=== PATIENT | female | born 1945 | race Caucasian/White ===

== ENCOUNTER → 2016-07-11 | Outpatient (CLI) | payer BC ==
[~2016-07-11] MED LIST: ASCO1CAP3 PO; ASPI-461 PO; ATV1 PO; DILT-119 PO; DVN80125 PO; FURO40TA3 PO; HYDR-4852 PO; IRON PO; LYR/50 PO; MEDR2.5T PO; MULT-884 PO; NITROGLYCERIN SL; NXM/40 PO; POTA10CA28 PO; PRM625 PO; ROSU20TA PO; RXC5 PO; SITA1TAB21 PO
[2016-07-11 14:37] LABS: HEMATOCRIT 36.6 % (37-47); MEAN CELL VOLUME 96.8 fL (80-100); MEAN CORPUSCULAR HEMOGLOBIN 32.3 pg (25-34); MEAN CORPUSCULAR HGB CONC 33.3 g/dl (32-36); MEAN PLATELET VOLUME 9.8 fL (7.4-10.4); PLATELET COUNT 235 K/uL (130-400); RED BLOOD COUNT 3.78 M/uL (4.2-5.4); WHITE BLOOD COUNT 7.69 K/uL (4.8-10.8)
[2016-07-11 14:48] LABS: BLOOD UREA NITROGEN 26 mg/dl (7-18); BUN/CREATININE RATIO 15.1 (10-20); CALCIUM 9.6 mg/dl (8.5-10.1); CARBON DIOXIDE 28 mmol/L (21-32); CHLORIDE 106 mmol/L (98-107); GLUCOSE 179 mg/dl (70-99); POTASSIUM 4.4 mmol/L (3.5-5.1); SODIUM 143 mmol/L (136-145)
[2016-07-11 14:53] LABS: FERRITIN 40.8 ng/ml (8.0-388.0); PHOSPHORUS 3.8 mg/dl (2.5-4.9); TOTAL IRON BINDING CAPACITY 413 mcg/dl (250-450)
== END | disposition home or self-care (01) ==
LOC: C.LAB 13:21
PROVIDERS: ATTEND Internal Medicine Nephrology
DX: D64.9 Anemia, unspecified (principal); E55.9 Vitamin D deficiency, unspecified

== ENCOUNTER 2017-07-18 13:17 | Inpatient (IN) | payer BC, OTHER ==
[~2017-07-18] VITALS: Ht 157.5 cm; Wt 75.9 kg
[2017-07-18] MEDS ORDERED: MoRPHine SULFATE 4 MG/ML 1 ML CARP\\VIAL IV STA (14:56)
[2017-07-18] MEDS ORDERED: CHOL2000 PO (15:20)
[2017-07-18] MEDS ORDERED: HYDR-5688 PO (15:20)
[2017-07-18] MEDS ORDERED: FLNIN/ NAE (15:20)
[2017-07-18] MEDS ORDERED: SERT1TAB88 PO (15:20)
[2017-07-18] MEDS ORDERED: POTA20TA13 PO (15:20)
[2017-07-18] MEDS ORDERED: FERR1TAB62 PO (15:20)
[2017-07-18] MEDS ORDERED: BUME2TAB3 PO (15:20)
[2017-07-18] MEDS ORDERED: MULT-610 PO (15:20)
[2017-07-18] MEDS ORDERED: DILT360C22 PO (15:20)
[2017-07-18] MEDS ORDERED: ZRX25 PO (15:20)
[2017-07-18] MEDS ORDERED: ESOM1CAP34 PO (15:20)
[2017-07-18] MEDS ORDERED: ROSU20TA33 PO (15:20)
[2017-07-18] MEDS ORDERED: GLCSR5 PO (15:20)
[2017-07-18] MEDS ORDERED: ASPI81TA28 PO (15:22)
[2017-07-18] MEDS ORDERED: NTRSL3 UT (15:24)
[2017-07-18] MEDS ORDERED: MoRPHine SULFATE 4 MG/ML 1 ML CARP\\VIAL IM STA (15:44)
--- NOTE | 2017-07-18 15:50 | DIAGNOSTIC IMAGING REPORT ---
LUMBAR SPINE 2 OR 3 VIEWS CLINICAL HISTORY: lower back pain COMPARISON STUDY: 01/21/2015 FINDINGS: Extensive postsurgical changes are again evident. There are postsurgical changes of discectomies and interbody fusions at the L4-5 and L5-S1 levels. There is a grade 1 spinal listhesis of L4 and L5. There is thoracolumbar spinal fusion extending from the T11 through the S1 level. There are bilateral sacroiliac bolts. There are multilevel degenerative changes. There is no pathologic bowel dilatation. There are surgical clips within the right upper quadrant. IMPRESSION: Extensive postsurgical changes. No acute fractures are visualized. Electronically signed by: Rajesh Meng M.D. 07/18/2017 3:48 PM Dictated Date/Time: 07/18/2017 3:47 PM
--- NOTE | 2017-07-18 16:42 | EMERGENCY ROOM VISIT NOTE ---
History First contact with patient: 14:16 Chief Complaint: BACK PAIN Stated Complaint: BACK PAIN History of Present Illness The patient is a 72 year old female who presents to the Emergency Room with complaints of lower back pain. The patient stated that she bent to clean up a spill at about 1 AM this morning and heard a snap/click in the lower back and developed severe pain in the back. The pain is 10/10 .She states that the pain sometimes radiates to her upper back but denies any radiation to lower extremities. She denies any bowel or bladder incontinence, motor weakness, numbness or tingling. Denies any chest pain, shortness of breath, nausea, vomiting. Review of Systems See HPI for pertinent positives & negatives. A total of 10 systems reviewed and were otherwise negative. Past Medical/Surgical History Medical Problems: (1) Bradycardia (2) Chest pain Surgical Problems: (1) History of bilateral knee replacement Social History Smoking Status: Never Smoker Current/Historical Medications Scheduled Ascorbic Acid (Vitamin C), 500 MG PO QAM Aspirin (Aspirin Ec), 81 MG PO QAM Bumetanide (Bumex), 2 MG PO BID Cholecalciferol (Vitamin D3), 2,000 INTER.UNIT PO DAILY Doxycycline Hyclate (Doxycycline Hyclate), 100 MG PO BID Esomeprazole Magnesium (Esomeprazole Magnesium), 40 MG PO QAM Ferrous Sulfate (Ferrous Sulfate), 325 MG PO DAILY Glipizide (Glipizide Xl), 5 MG PO DAILY Multiple Vitamins W/ Minerals (Centrum Adults), 1 TAB PO DAILY Potassium Chloride Microencaps (Potassium Chloride Er), 40 MEQ PO BID Pregabalin (Lyrica), 50 MG PO BID Rosuvastatin Calcium (Rosuvastatin Calcium), 20 MG PO QPM Sertraline HCl (Sertraline HCl), 25 MG PO DAILY Scheduled PRN Fluticasone Propionate (Fluticasone Propionate), 2 SPRAYS LAURIE DAILY PRN for Allergy Symptoms Hydrocodone/Acetaminophen 5MG/325MG ([place] 5MG/325MG), 1 TABLET PO TID PRN for Pain Metolazone (Metolazone), 2.5 MG PO 3XWK PRN for Fluid Retention Nitroglycerin (Nitrostat), 0.3 MG UT UD PRN for Chest Pain Physical Exam Vital Signs Date Time Temp Pulse Resp B/P (MAP) Pulse Ox O2 Delivery O2 Flow Rate FiO2 07/18/17 18:23 65 18 124/94 93 Nasal Cannula 4.0 07/18/17 18:17 37 18 115/44 89 Nasal Cannula 3.0 07/18/17 17:50 72 20 147/65 94 Nasal Cannula 2.0 07/18/17 17:34 37 07/18/17 17:23 88 Room Air 07/18/17 17:23 93 Nasal Cannula 07/18/17 17:10 68 16 140/63 88 07/18/17 16:13 70 20 169/59 93 Room Air 07/18/17 13:38 36.6 76 22 146/79 93 Room Air Physical Exam GENERAL: Patient is in no acute distress. HEENT: No acute trauma, normocephalic atraumatic, mucous membranes moist, no nasal congestion, no scleral icterus. NECK: No stridor, no adenopathy, no meningismus, trachea is midline. LUNGS: Clear to auscultation bilaterally, no wheeze, no rhonchi, breath sounds equal. HEART: Without murmurs gallops or rubs, regular rate and rhythm. ABDOMEN: Soft, nontender, bowel sounds positive, no hernias, no peritonitis. EXTREMITIES: No cyanosis or edema, Lumbar area tenderness in the spine and paraspinal areas especially in the right side. NEUROLOGIC: Oriented x 3, no acute motor or sensory deficits, no focal weakness. SKIN: No rash, no jaundice, no diaphoresis. Medical Decision & Procedures ER Provider Diagnostic Interpretation: CLINICAL HISTORY: lower back pain COMPARISON STUDY: 01/21/2015 FINDINGS: Extensive postsurgical changes are again evident. There are postsurgical changes of discectomies and interbody fusions at the L4-5 and L5-S1 levels. There is a grade 1 spinal listhesis of L4 and L5. There is thoracolumbar spinal fusion extending from the T11 through the S1 level. There are bilateral sacroiliac bolts. There are multilevel degenerative changes. There is no pathologic bowel dilatation. There are surgical clips within the right upper quadrant. IMPRESSION: Extensive postsurgical changes. No acute fractures are visualized. [~ rep ct add3]] SINGLE VIEW CHEST CLINICAL HISTORY: Atypical chest pain. FINDINGS: An AP, portable, upright chest radiograph is compared to study dated 12/17/2014 and correlated with chest CT dated 02/13/2017. The examination is degraded by portable technique and patient rotation. The heart is enlarged and there is atherosclerotic calcification of the thoracic aorta. The pulmonary vasculature is noncongested. Chronic interstitial thickening is similar to previous. No airspace consolidation or large pleural effusion is identified. There is left basilar atelectasis. No pneumothorax is seen. The skeletal structures are osteopenic. Degenerative change and scoliosis are noted in the thoracic spine. Fusion hardware is partially imaged in the upper lumbar region. Cholecystectomy clips are noted. IMPRESSION: Cardiomegaly with no acute cardiopulmonary abnormality. Electronically signed by: Vance Aburto M.D. 07/18/2017 5:58 PM Dictated Date/Time: 07/18/2017 5:[address] ANGIOGRAM OF THE CHEST CLINICAL HISTORY: Atypical chest pain. Hypoxia. COMPARISON STUDY: Chest x-ray dated 07/18/2017. Chest CT dated 02/13/2017. TECHNIQUE: Following the IV administration of 86 cc of Optiray 320, CT angiogram of the chest was performed from the upper abdomen to the thoracic inlet utilizing the pulmonary embolus protocol. Images are reviewed in the axial, sagittal, and coronal planes. 3-D MIPS images are created and assessed. IV contrast was administered without complication. A dose lowering technique was utilized adhering to the principles of ALARA. The examination is degraded by motion artifact. CT DOSE: 349.06 mGy.cm FINDINGS: Thyroid: Imaged portions of the thyroid gland are normal in size and attenuation. Thoracic aorta: There is atherosclerotic calcification of the thoracic aorta, which is normal in caliber and demonstrates standard 3-vessel arch anatomy. The thoracic aorta is not well opacified. Pulmonary vasculature: The pulmonary trunk is mildly dilated measuring 3.1 cm in diameter. This suggests pulmonary artery hypertension. There are no filling defects identified in main, lobar, or segmental pulmonary branches to suggest pulmonary embolus. Heart: The heart is enlarged and without pericardial effusion. The coronary arteries are calcified. Lungs and pleural spaces: Evaluation of the lung parenchyma is significantly degraded by respiratory motion artifact. Dependent airspace opacities are present at both lung bases. No pleural effusion is seen. Mediastinum: Prominent mediastinal lymph nodes are nonspecific. A prevascular node on image #171 measure 9 mm short axis. A precarinal node on image #155 measures 10 mm in short axis. Antionette: Clear. Axillae: There is no axillary lymphadenopathy. Upper abdomen: Cholecystectomy clips are noted. Central intrahepatic biliary ductal dilatation is likely related to previous cholecystectomy. There is a moderate hiatal hernia. Skeletal structures: The skeletal structures are osteopenic. Fusion hardware is noted at the thoracolumbar junction. Degenerative change is seen throughout the thoracic spine. No lytic or blastic bony lesions are seen. IMPRESSION: 1. Motion degraded examination. 2. There is no evidence of pulmonary embolus in the main, lobar, or segmental pulmonary arteries. 3. Dependent airspace opacities are present at both lung bases and likely represent atelectasis. Correlate clinically for evidence of superimposed pneumonia/aspiration pneumonitis. 4. No pleural effusion is identified. 5. Cardiomegaly. 6. Moderate hiatal hernia. 7. Additional findings as above. Laboratory Results Test 07/18/17 17:24 07/18/17 17:50 Immature Granulocyte % (Auto) 0.3 % White Blood Count 7.11 K/uL (4.8-10.8) Red Blood Count 3.95 M/uL (4.2-5.4) Hemoglobin 12.8 g/dL (12.0-16.0) Hematocrit 37.4 % (37-47) Mean Corpuscular Volume 94.7 fL (80-100) Mean Corpuscular Hemoglobin 32.4 pg (25-34) Mean Corpuscular Hemoglobin Concent 34.2 g/dl (32-36) Platelet Count 181 K/uL (130-400) Mean Platelet Volume 9.2 fL (7.4-10.4) Neutrophils (%) (Auto) 46.3 % Lymphocytes (%) (Auto) 40.5 % Monocytes (%) (Auto) 10.5 % Eosinophils (%) (Auto) 2.1 % Basophils (%) (Auto) 0.3 % Neutrophils # (Auto) 3.29 K/uL (1.4-6.5) Lymphocytes # (Auto) 2.88 K/uL (1.2-3.4) Monocytes # (Auto) 0.75 K/uL (0.11-0.59) Eosinophils # (Auto) 0.15 K/uL (0-0.5) Basophils # (Auto) 0.02 K/uL (0-0.2) Immature Granulocyte # (Auto) 0.02 K/uL (0.00-0.02) Prothrombin Time 10.4 SECONDS (9.0-12.0) Prothromb Time International Ratio 1.0 (0.9-1.1) Total Bilirubin 0.3 mg/dl (0.2-1) Direct Bilirubin < 0.1 mg/dl (0-0.2) Aspartate Amino Transf (AST/SGOT) 28 U/L (15-37) Alanine Aminotransferase (ALT/SGPT) 24 U/L (12-78) Alkaline Phosphatase 124 U/L (45-117) Pro-B-Type Natriuretic Peptide 200 pg/ml (0-900) Total Protein 7.2 gm/dl (6.4-8.2) Albumin 3.3 gm/dl (3.4-5.0) Lipase 284 U/L (73-393) Bedside Hemoglobin 10.5 g/dl (12.0-16.0) Bedside Hematocrit 31 % (37-47) Bedside Sodium 144 mEq/L (135-144) Bedside Potassium 3.5 mEq/L (3.3-5.0) Bedside Chloride 107 mEq/L (101-112) Bedside Total CO2 30 mEq/l (24-31) Bedside Blood Urea Nitrogen 20 mg/dl (7-18) Bedside Creatinine 1.3 mg/dl (0.6-1.3) Bedside Glucose (other) 105 mg/dl (70-99) Bedside Ionized Calcium (Maribell) 1.12 mmol/l (1.12-1.32) Medications Administered Medications (Trade) Dose Ordered Sig/Jose Route Start Time Stop Time Status Last Admin Dose Admin Morphine Sulfate (MoRPHine SULFATE INJ) 4 mg NOW STAT IM 07/18/17 15:44 07/18/17 15:45 DC 07/18/17 16:11 4 MG Aspirin (Aspirin Chew) 324 mg NOW STAT PO 07/18/17 17:23 07/18/17 17:24 DC 07/18/17 17:47 324 MG Ondansetron HCl (Zofran Inj) 4 mg STK-MED ONCE .ROUTE 07/18/17 17:32 07/18/17 17:33 DC 07/18/17 17:37 4 MG Nitroglycerin (Nitrostat Tab) 0.4 mg NOW STAT SL 07/18/17 17:42 07/18/17 17:43 DC 07/18/17 17:47 0.4 MG Potassium Chloride (Klor-Con M10) 40 meq NOW STAT PO 07/18/17 18:33 2 18:34 DC 07/18/17 18:39 40 MEQ Magnesium Sulfate (Magnesium Sulfate) 1 gm NOW STAT IV 07/18/17 18:33 2 18:34 DC 07/18/17 18:40 1 GM Medical Decision Prior records reviewed and summarized above. Triage Nursing notes reviewed. Additional history obtained from the patient The patient's history was concerning for Lower back pain. Differential diagnosis: Etiologies such as fracture, dislocation, neurovascular compromise, compartment syndrome, soft tissue injury, as well as others were entertained. Physical examination: Consistent with Low back pain ER treatment provided: Lumbar x-ray was obtained which was negative for any fractures Consultation: A consultation was placed with hospitalist. The case was discussed and diagnostics were reviewed. The patient was evaluated in the ER for further treatment. An 38-year-old female with a past medical history of lumbar spinal fusion presented with complaints of low back pain started this morning when she bent down to clean a spill on the floor and heard a snap. She was evaluated in the ER and her vital signs were stable. Her physical exam was within normal limits and she was given 4 mg of morphine IM . X-ray was obtained which was found to be negative for any fractures. Just prior to discharge she was found to have bradycardia on the monitor and she complained of chest pressure she stated that she had taken a nitroglycerin from her purse which she usually does whenever she gets the chest pain. Her systolic blood pressure also was lower. She was given IV fluids which improved her bradycardia and her blood pressure. CBC, BMP , liver profile, troponin were obtained and found to be unremarkable. Chest x- ray was unremarkable CTA chest was obtained to rule out Pulmonary embolism. The patient had stated that she recently had a cardiac catheterization performed about 2-3 weeks ago and was clean. The report was obtained and was found to have normal LV function with mild regurgitation and mild to moderate pulm hypertension. She was found to have 2 other episodes where she was bradycardic but she was asymptomatic. Was given another litre of IVF and consultation was placed with the hospitalist service for admission. Impression Primary Impression: Back pain Additional Impressions: Bradycardia Precordial chest pain Departure Information Prescriptions Doxycycline Hyclate (Doxycycline Hyclate) 100 Mg Cap 100 MG PO BID for 3 Days, #6 CAP 0 Refills Prov: Edgar Deng MD 07/22/17 Hydrocodone/Acetaminophen 5MG/325MG ([place] 5MG/325MG) Tab 1 TABLET PO TID Y for Pain, #15 TAB Prov: Edgar Deng MD 07/22/17 Referrals CORTNEY TYSON (PCP) Patient Instructions [facility] Resident Tracking Resident Involvement: Resident Care Provided Care Provided: Adult ED Problem Qualifiers Primary Impression: Back pain Back pain location: back pain in unspecified location Chronicity: unspecified Back pain laterality: unspecified Qualified Codes: M54.9 - Dorsalgia, unspecified
[2017-07-18] MEDS ORDERED: OXYC1TAB3 PO (17:05)
[2017-07-18] MEDS ORDERED: ASPIRIN 81 MG CHEW PO STA (17:23)
[2017-07-18] MEDS ORDERED: ONDANSETRON INJ 2 MG/ML 2 ML VIAL ONE (17:32)
[2017-07-18] MEDS ORDERED: ONDANSETRON INJ 2 MG/ML 2 ML VIAL IV STA (17:32)
[2017-07-18 17:37] LABS: BASO % 0.3 %; BASO ABS # 0.02 K/uL (0-0.2); EOS % 2.1 %; EOS ABS # 0.15 K/uL (0-0.5); HEMATOCRIT 37.4 % (37-47); HEMOGLOBIN 12.8 g/dL (12.0-16.0); IG# 0.02 K/uL (0.00-0.02); LYMPH % 40.5 %; LYMPH ABS # 2.88 K/uL (1.2-3.4); MEAN CELL VOLUME 94.7 fL (80-100); MEAN CORPUSCULAR HEMOGLOBIN 32.4 pg (25-34); MEAN CORPUSCULAR HGB CONC 34.2 g/dl (32-36); MEAN PLATELET VOLUME 9.2 fL (7.4-10.4); MONO % 10.5 %; MONO ABS # 0.75 K/uL (0.11-0.59); NEUT % 46.3 %; NEUT ABS # 3.29 K/uL (1.4-6.5); PLATELET COUNT 181 K/uL (130-400); RED CELL DISTRIBUTION WIDTH SD 48.4 fL (36.4-46.3); WHITE BLOOD COUNT 7.11 K/uL (4.8-10.8)
[2017-07-18] MEDS ORDERED: NITROGLYCERIN 0.4 MG SL PER TAB CHARGE SL STA (17:42)
[2017-07-18] MEDS ORDERED: OPTIRAY 320 IV PRN (17:45)
[2017-07-18 17:53] LABS: BLOOD UREA NITROGEN 18 mg/dl (7-18); CALCIUM 9.4 mg/dl (8.5-10.1); CARBON DIOXIDE 31 mmol/L (21-32); CREATININE 1.52 mg/dl (0.60-1.20); GLUCOSE 95 mg/dl (70-99); POTASSIUM 3.5 mmol/L (3.5-5.1); SODIUM 143 mmol/L (136-145)
--- NOTE | 2017-07-18 17:59 | DIAGNOSTIC IMAGING REPORT ---
SINGLE VIEW CHEST CLINICAL HISTORY: Atypical chest pain. FINDINGS: An AP, portable, upright chest radiograph is compared to study dated 12/17/2014 and correlated with chest CT dated 02/13/2017. The examination is degraded by portable technique and patient rotation. The heart is enlarged and there is atherosclerotic calcification of the thoracic aorta. The pulmonary vasculature is noncongested. Chronic interstitial thickening is similar to previous. No airspace consolidation or large pleural effusion is identified. There is left basilar atelectasis. No pneumothorax is seen. The skeletal structures are osteopenic. Degenerative change and scoliosis are noted in the thoracic spine. Fusion hardware is partially imaged in the upper lumbar region. Cholecystectomy clips are noted. IMPRESSION: Cardiomegaly with no acute cardiopulmonary abnormality. Electronically signed by: Vance Aburto M.D. 07/18/2017 5:58 PM Dictated Date/Time: 07/18/2017 5:56 PM
[2017-07-18 18:04] LABS: ISTAT CREATININE 1.3 mg/dl (0.6-1.3); ISTAT IONIZED CALCIUM 1.12 mmol/l (1.12-1.32); ISTAT POTASSIUM 3.5 mEq/L (3.3-5.0)
--- NOTE | 2017-07-18 18:15 | DIAGNOSTIC IMAGING REPORT ---
CT ANGIOGRAM OF THE CHEST CLINICAL HISTORY: Atypical chest pain. Hypoxia. COMPARISON STUDY: Chest x-ray dated 07/18/2017. Chest CT dated 02/13/2017. TECHNIQUE: Following the IV administration of 86 cc of Optiray 320, CT angiogram of the chest was performed from the upper abdomen to the thoracic inlet utilizing the pulmonary embolus protocol. Images are reviewed in the axial, sagittal, and coronal planes. 3-D MIPS images are created and assessed. IV contrast was administered without complication. A dose lowering technique was utilized adhering to the principles of ALARA. The examination is degraded by motion artifact. CT DOSE: 349.06 mGy.cm FINDINGS: Thyroid: Imaged portions of the thyroid gland are normal in size and attenuation. Thoracic aorta: There is atherosclerotic calcification of the thoracic aorta, which is normal in caliber and demonstrates standard 3-vessel arch anatomy. The thoracic aorta is not well opacified. Pulmonary vasculature: The pulmonary trunk is mildly dilated measuring 3.1 cm in diameter. This suggests pulmonary artery hypertension. There are no filling defects identified in main, lobar, or segmental pulmonary branches to suggest pulmonary embolus. Heart: The heart is enlarged and without pericardial effusion. The coronary arteries are calcified. Lungs and pleural spaces: Evaluation of the lung parenchyma is significantly degraded by respiratory motion artifact. Dependent airspace opacities are present at both lung bases. No pleural effusion is seen. Mediastinum: Prominent mediastinal lymph nodes are nonspecific. A prevascular node on image #171 measure 9 mm short axis. A precarinal node on image #155 measures 10 mm in short axis. Antionette: Clear. Axillae: There is no axillary lymphadenopathy. Upper abdomen: Cholecystectomy clips are noted. Central intrahepatic biliary ductal dilatation is likely related to previous cholecystectomy. There is a moderate hiatal hernia. Skeletal structures: The skeletal structures are osteopenic. Fusion hardware is noted at the thoracolumbar junction. Degenerative change is seen throughout the thoracic spine. No lytic or blastic bony lesions are seen. IMPRESSION: 1. Motion degraded examination. 2. There is no evidence of pulmonary embolus in the main, lobar, or segmental pulmonary arteries. 3. Dependent airspace opacities are present at both lung bases and likely represent atelectasis. Correlate clinically for evidence of superimposed pneumonia/aspiration pneumonitis. 4. No pleural effusion is identified. 5. Cardiomegaly. 6. Moderate hiatal hernia. 7. Additional findings as above. Electronically signed by: Vance Aburto M.D. 07/18/2017 6:14 PM Dictated Date/Time: 07/18/2017 6:08 PM
[2017-07-18 18:26] LABS: ALBUMIN 3.3 gm/dl (3.4-5.0); ALKALINE PHOSPHATASE 124 U/L (45-117); ALT/SGPT 24 U/L (12-78); AST/SGOT 28 U/L (15-37); LIPASE 284 U/L (73-393); TOTAL PROTEIN 7.2 gm/dl (6.4-8.2)
[2017-07-18] MEDS ORDERED: POTASSIUM CHLORIDE 10 MEQ TABCR PO STA (18:33)
[2017-07-18] MEDS ORDERED: MAGNESIUM SULFATE 1GM / D5W 1 GM BAG IV STA (18:33)
--- NOTE | 2017-07-18 18:51 | EMERGENCY ROOM VISIT NOTE ---
History Report prepared by Garima: Kuldeep Truong Under the Supervision of: Dr. Ramon Olmstead D.O. First contact with patient: 14:16 Chief Complaint: BACK PAIN Stated Complaint: BACK PAIN History of Present Illness The patient is a 72 year old female who presents to the Emergency Room with complaints of sharp lower back pain that began earlier this morning. She rates her pain a 10/10 in severity. She has a past medical history of lumbar spine surgery with stenosis and bilateral knee replacements. Very early this morning, the patient saw something on her floor, so she bent over to clean it. She then heard a "snap" sound and began to experience severe lower back pain. She has intermittent radiation into her upper back, but not her legs. Her pain is exacerbated with movement. She denies any weakness, numbness, or bowel/bladder incontinence. Pt denies headache, change in vision, fevers, chest pain, shortness of breath, nausea, vomiting, diarrhea, pain with urination, and melena. She took a hydrocodone earlier today, but is still having pain. She was able to walk into the ER and uses a walker at her baseline. Source of History: patient Onset: earlier this morning Position: back (lower) Symptom Intensity: 10/10 Quality: sharp Timing: constant Modifying Factors (Worsening): movement Associated Symptoms: No fevers, No headache, No chest pain, No SOB, No nausea, No vomiting, No melena, No diarrhea, No urinary symptoms, No weakness, No numbness Review of Systems See HPI for pertinent positives & negatives. A total of 10 systems reviewed and were otherwise negative. Past Medical & Surgical Medical Problems: (1) Bradycardia (2) Chest pain Surgical Problems: (1) History of bilateral knee replacement Family History Omitted secondary to the patient's age. Social History Smoking Status: Never Smoker Smokeless Tobacco Use: No Drug Use: none Marital Status: Housing Status: lives with significant other Occupation Status: retired Current/Historical Medications Scheduled Ascorbic Acid (Vitamin C), 500 MG PO QAM Aspirin (Aspirin Ec), 81 MG PO QAM Bumetanide (Bumex), 2 MG PO BID Cholecalciferol (Vitamin D3), 2,000 INTER.UNIT PO DAILY Diltiazem Hcl Extended Release (Tiazac 360 Mg), 360 MG PO QAM Esomeprazole Magnesium (Esomeprazole Magnesium), 40 MG PO QAM Ferrous Sulfate (Ferrous Sulfate), 325 MG PO DAILY Glipizide (Glipizide Xl), 5 MG PO DAILY Multiple Vitamins W/ Minerals (Centrum Adults), 1 TAB PO DAILY Potassium Chloride Microencaps (Potassium Chloride Er), 40 MEQ PO BID Pregabalin (Lyrica), 50 MG PO BID Rosuvastatin Calcium (Rosuvastatin Calcium), 20 MG PO QPM Sertraline HCl (Sertraline HCl), 25 MG PO DAILY Scheduled PRN Fluticasone Propionate (Fluticasone Propionate), 2 SPRAYS LAURIE DAILY PRN for Allergy Symptoms Hydrocodone/Acetaminophen 5MG/325MG ([place] 5MG/325MG), 1 TABLET PO Q6H PRN for Pain Metolazone (Metolazone), 2.5 MG PO 3XWK PRN for Fluid Retention Nitroglycerin (Nitrostat), 0.3 MG UT UD PRN for Chest Pain Oxycodone Immediate Rel Tab (Roxicodone Ir), 5 MG PO Q6H PRN for Pain Allergies Coded Allergies: Cephalexin (Verified Allergy, Unknown, RASH, 01/18/15) Ciprofloxacin (Verified Allergy, Unknown, UNKNOWN, 01/18/15) Physical Exam Vital Signs Date Time Temp Pulse Resp B/P (MAP) Pulse Ox O2 Delivery O2 Flow Rate FiO2 07/18/17 18:23 65 18 124/94 93 Nasal Cannula 4.0 07/18/17 18:17 37 18 115/44 89 Nasal Cannula 3.0 07/18/17 17:50 72 20 147/65 94 Nasal Cannula 2.0 07/18/17 17:34 37 07/18/17 17:23 88 Room Air 07/18/17 17:23 93 Nasal Cannula 07/18/17 17:10 68 16 140/63 88 07/18/17 16:13 70 20 169/59 93 Room Air 07/18/17 13:38 36.6 76 22 146/79 93 Room Air Physical Exam GENERAL: Sitting up in bed holding lower back, alert, chronically ill-appearing , moderate distress, non-toxic EYE EXAM: normal conjunctiva. OROPHARYNX: no exudate, no erythema, lips, buccal mucosa, and tongue normal and mucous membranes are moist NECK: supple, no nuchal rigidity, no adenopathy, non-tender LUNGS: Wheezing bilaterally. Normal chest wall mechanics HEART: no murmurs, S1 normal and S2 normal ABDOMEN: abdomen soft, non-tender, normo-active bowel sounds, no masses, no rebound or guarding. BACK: Back is symmetrical on inspection and there is no deformity, no CVA tenderness. Acute reproducible tenderness to the lower lumbar/paraspinal region. SKIN: no rashes and no bruising UPPER EXTREMITIES: upper extremities are grossly normal. LOWER EXTREMITIES: No pitting edema. Flexion and extension at the hips, knees, ankles, and EHL 5/5 bilaterally. Unable to obtain patellar and Achilles reflexes. Gross sensation is intact. NEURO EXAM: Normal sensorium, cranial nerves II-XII grossly intact, normal speech, no gross weakness of arms, no gross weakness of legs. Medical Decision & Procedures ER Provider Diagnostic Interpretation: Radiology results as stated below per my review and the radiologist's interpretation: LUMBAR SPINE 2 OR 3 VIEWS CLINICAL HISTORY: lower back pain COMPARISON STUDY: 01/21/2015 FINDINGS: Extensive postsurgical changes are again evident. There are postsurgical changes of discectomies and interbody fusions at the L4-5 and L5-S1 levels. There is a grade 1 spinal listhesis of L4 and L5. There is thoracolumbar spinal fusion extending from the T11 through the S1 level. There are bilateral sacroiliac bolts. There are multilevel degenerative changes. There is no pathologic bowel dilatation. There are surgical clips within the right upper quadrant. IMPRESSION: Extensive postsurgical changes. No acute fractures are visualized. Electronically signed by: Rajesh Meng M.D. 07/18/2017 3:48 PM Dictated Date/Time: 07/18/2017 3:47 PM Laboratory Results 07/18/17 17:24 Red Blood Count 3.95, Mean Corpuscular Volume 94.7, Mean Corpuscular Hemoglobin 32.4, Mean Corpuscular Hemoglobin Concent 34.2, Mean Platelet Volume 9.2, Neutrophils (%) (Auto) 46.3, Lymphocytes (%) (Auto) 40.5, Monocytes (%) (Auto) 10.5, Eosinophils (%) (Auto) 2.1, Basophils (%) (Auto) 0.3, Neutrophils # (Auto ) 3.29, Lymphocytes # (Auto) 2.88, Monocytes # (Auto) 0.75, Eosinophils # (Auto ) 0.15, Basophils # (Auto) 0.02 07/18/17 17:24 Test 07/18/17 17:24 07/18/17 17:50 White Blood Count 7.11 K/uL (4.8-10.8) Red Blood Count 3.95 M/uL (4.2-5.4) Hemoglobin 12.8 g/dL (12.0-16.0) Hematocrit 37.4 % (37-47) Mean Corpuscular Volume 94.7 fL (80-100) Mean Corpuscular Hemoglobin 32.4 pg (25-34) Mean Corpuscular Hemoglobin Concent 34.2 g/dl (32-36) Platelet Count 181 K/uL (130-400) Mean Platelet Volume 9.2 fL (7.4-10.4) Neutrophils (%) (Auto) 46.3 % Lymphocytes (%) (Auto) 40.5 % Monocytes (%) (Auto) 10.5 % Eosinophils (%) (Auto) 2.1 % Basophils (%) (Auto) 0.3 % Neutrophils # (Auto) 3.29 K/uL (1.4-6.5) Lymphocytes # (Auto) 2.88 K/uL (1.2-3.4) Monocytes # (Auto) 0.75 K/uL (0.11-0.59) Eosinophils # (Auto) 0.15 K/uL (0-0.5) Basophils # (Auto) 0.02 K/uL (0-0.2) RDW Standard Deviation 48.4 fL (36.4-46.3) RDW Coefficient of Variation 14.0 % (11.5-14.5) Immature Granulocyte % (Auto) 0.3 % Immature Granulocyte # (Auto) 0.02 K/uL (0.00-0.02) Est Creatinine Clear Calc Drug Dose 31.4 ml/min Estimated GFR () 38.7 Estimated GFR (Non- 33.4 BUN/Creatinine Ratio 11.8 (10-20) Calcium Level 9.4 mg/dl (8.5-10.1) Total Bilirubin 0.3 mg/dl (0.2-1) Direct Bilirubin < 0.1 mg/dl (0-0.2) Aspartate Amino Transf (AST/SGOT) 28 U/L (15-37) Alanine Aminotransferase (ALT/SGPT) 24 U/L (12-78) Alkaline Phosphatase 124 U/L (45-117) Troponin I < 0.015 ng/ml (0-0.045) Total Protein 7.2 gm/dl (6.4-8.2) Albumin 3.3 gm/dl (3.4-5.0) Lipase 284 U/L (73-393) Bedside Hemoglobin 10.5 g/dl (12.0-16.0) Bedside Hematocrit 31 % (37-47) Bedside Sodium 144 mEq/L (135-144) Bedside Potassium 3.5 mEq/L (3.3-5.0) Bedside Chloride 107 mEq/L (101-112) Bedside Total CO2 30 mEq/l (24-31) Anion Gap 12.0 mmol/L (16-25) Bedside Blood Urea Nitrogen 20 mg/dl (7-18) Bedside Creatinine 1.3 mg/dl (0.6-1.3) Bedside Glucose (other) 105 mg/dl (70-99) Bedside Ionized Calcium ([place]ibell) 1.12 mmol/l (1.12-1.32) Laboratory results per my review. Medications Administered Medications (Trade) Dose Ordered Sig/Jose Route Start Time Stop Time Status Last Admin Dose Admin Morphine Sulfate (MoRPHine SULFATE INJ) 4 mg NOW STAT IM 07/18/17 15:44 07/18/17 15:45 DC 07/18/17 16:11 4 MG Aspirin (Aspirin Chew) 324 mg NOW STAT PO 07/18/17 17:23 07/18/17 17:24 DC 07/18/17 17:47 324 MG Ondansetron HCl (Zofran Inj) 4 mg STK-MED ONCE .ROUTE 07/18/17 17:32 07/18/17 17:33 DC 07/18/17 17:37 4 MG Nitroglycerin (Nitrostat Tab) 0.4 mg NOW STAT SL 07/18/17 17:42 07/18/17 17:43 DC 07/18/17 17:47 0.4 MG Potassium Chloride (Klor-Con M10) 40 meq NOW STAT PO 07/18/17 18:33 18 18:34 DC 07/18/17 18:39 40 MEQ Magnesium Sulfate (Magnesium Sulfate) 1 gm NOW STAT IV 07/18/17 18:33 07/18/17 18:34 DC 07/18/17 18:40 1 GM ECG Per My Interpretation Indication: chest pain Rate (beats per minute): 67 Rhythm: sinus rhythm Findings: nonspecific-ST abn (Septal), RBBB Comparison ECG Date: 18 Jan 2015 Change: no significant change ED Course ED COURSE: Vital signs were reviewed and showed situational hypertension The patients medical record was reviewed The above diagnostic studies were performed and reviewed. ED treatments and interventions as stated above. 1416: The patient was evaluated in room A9. A complete history and physical examination was performed. 1456: Ordered Morphine Sulfate 4 mg IV 1544: Ordered Morphine Sulfate 4 mg IM 1700: The patient feels much better at this time. 1715: The patient experienced some precordial chest tightness at this time. She took a Nitroglycerin that she had in her purse which resolved her pain. She informed me that she recently had a heart catheterization four weeks ago which was normal. 1732: Ordered Zofran Inj 4 mg IV 1740: The patient started to have chest pain again and went into atrial flutter. She became bradycardic into the 20's. With more fluids, her symptoms resolved. 1742: Ordered Nitrostat Tab 0.4 mg SL 1815: Upon reevaluation, the patient is resting.I discussed my findings with the patient and she understands and agrees with the treatment plan. Based on the patients age, coexisting illnesses, exam and lab findings the decision to treat as an inpatient was made. The patient remained stable while under my care. The patient will be evaluated by internal medicine for further management. Medical Decision Differential diagnoses includes but is not limited to lumbar radiculopathy, muscle strain, facture, cauda equina, mass, and disc herniation. Patient is a 72-year-old female presents to ER for lower back pain. It started this morning at 1 AM when she bent over to pick something up. She denies any focal weakness. X-rays were unremarkable. Patient was given IM narcotics. She felt significantly better. Just prior to discharge patient complained of severe chest pain radiating through to her back. At this time she became extremely bradycardic. On the monitor it initially looked like she went into an a flutter and bradycardia down to the 30s. Systolic pressures did trend down to the 80s. She was given fluids shortly thereafter her bradycardia resolved and her pressure improved. At this point labs were obtained. CBC along with BMP, LFTs, bilirubin and troponin were negative. Lipase is normal. She went over to CT and CAT scan of the chest was unremarkable. No dissection or PEs. She has a completely negative catheterization for 1 month ago that I was able to review. Normal LV function. Mild regurg. Mild to moderate pulmonary hypertension. She was again resting in her room on 2 separate occasions and bradycardia down again to the low 30s. She is completely asymptomatic while resting in bed. She had no pain. Based on the second and third episodes I do not believe that this was vasovagal in nature but cannot be certain. I did discuss case with cardiology. Agrees with admission and holding Cardizem at this time. Patient remained on the pads. I did discuss with her daughter. We did give her 2 L normal saline. Heart rate did trend back up to the 50s-60s with 2 L normal saline. [place] Drug Monitoring Program Search Results: patient reviewed within database, no issues identified Medication Reconcilliation Current Medication List: was personally reviewed by me Blood Pressure Screening Patient's blood pressure: Elevated blood pressure Blood pressure disposition: Elevated BP felt to be situational Consults Time Called: 630 Consulting Physician: Dr. Casillas Will evaluate the patient Additional Consults: Time Called: 630 Consulted Physician: Dr. Brooks Additional Comments: Agrees with current treatment plan and recommends holding Cardizem Impression Primary Impression: Precordial chest pain Additional Impression: Back pain Critical Care I have personally spent 35 minutes of critical care time in the direct management of this patient. This includes bedside care, interpretation of diagnostic studies, and testing, discussion with consultants, patient, and family members, and other required patient management activities. This 35 minutes is in excess of all separately billable procedures. Scribe Attestation The scribe's documentation has been prepared under my direction and personally reviewed by me in its entirety. I confirm that the note above accurately reflects all work, treatment, procedures, and medical decision making performed by me. Departure Information Dispostion Being Evaluated By Hospitalist Prescriptions Oxycodone Immediate Rel Tab (ROXICODONE IR) 5 Mg Tab 5 MG PO Q6H Y for Pain, #10 TAB Prov: Ramon Olmstead, DO 07/18/17 Referrals CORTNEY TYSON (PCP) Forms HOME CARE DOCUMENTATION FORM, IMPORTANT VISIT INFORMATION Patient Instructions My [facility] Problem Qualifiers Additional Impression: Back pain Back pain location: back pain in unspecified location Chronicity: unspecified Back pain laterality: unspecified Qualified Codes: M54.9 - Dorsalgia, unspecified
--- NOTE | 2017-07-18 19:20 | History and Physical ---
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 pt mentions she bent forward to spilled water on the floor , felt something 'POP " on her back with excruciating pain . pain radiation to left leg unable to bear wt on left lower ext this morning -continued to have severe back pain , along with midsternal chest heaviness , discomfort , took SL nitro came to ER for evaluation , had Lumber Xray done , after return form Xray -pt became markedly bradycardic HR in low 30's associated with dizzy spell , lightheadedness and substernal chest discomfort Pacer pad was placed, HR spontaneously improved to 70's pt still having intermittent chest heaviness , no complain of SOB or Orthopnea Past Medical/Surgical History Surgical Problems: (1) History of bilateral knee replacement Status: Chronic Social History Smoking Status: Never Smoker Smokeless Tobacco Use: No Drug Use: none Marital Status: Occupational Status: retired Allergies Coded Allergies: Cephalexin (Verified Allergy, Unknown, RASH, 01/18/15) Ciprofloxacin (Verified Allergy, Unknown, UNKNOWN, 01/18/15) Home Medications Scheduled Ascorbic Acid (Vitamin C), 500 MG PO QAM Aspirin (Aspirin Ec), 81 MG PO QAM Bumetanide (Bumex), 2 MG PO BID Cholecalciferol (Vitamin D3), 2,000 INTER.UNIT PO DAILY Diltiazem Hcl Extended Release (Tiazac 360 Mg), 360 MG PO QAM Esomeprazole Magnesium (Esomeprazole Magnesium), 40 MG PO QAM Ferrous Sulfate (Ferrous Sulfate), 325 MG PO DAILY Glipizide (Glipizide Xl), 5 MG PO DAILY Multiple Vitamins W/ Minerals (Centrum Adults), 1 TAB PO DAILY Potassium Chloride Microencaps (Potassium Chloride Er), 40 MEQ PO BID Pregabalin (Lyrica), 50 MG PO BID Rosuvastatin Calcium (Rosuvastatin Calcium), 20 MG PO QPM Sertraline HCl (Sertraline HCl), 25 MG PO DAILY Scheduled PRN Fluticasone Propionate (Fluticasone Propionate), 2 SPRAYS LAURIE DAILY PRN for Allergy Symptoms Hydrocodone/Acetaminophen 5MG/325MG ([place] 5MG/325MG), 1 TABLET PO Q6H PRN for Pain Metolazone (Metolazone), 2.5 MG PO 3XWK PRN for Fluid Retention Nitroglycerin (Nitrostat), 0.3 MG UT UD PRN for Chest Pain Oxycodone Immediate Rel Tab (Roxicodone Ir), 5 MG PO Q6H PRN for Pain Review of Systems Constitutional: + weakness, + fatigue Respiratory: + dyspnea on exertion Cardiovascular: + chest pain, + palpitations Abdomen: No pain, No nausea, No vomiting, No diarrhea, No constipation, No GI bleeding, No problem reported Musculoskeletal: + problem reported (back pain ) Genitourinary - Female: No dysuria, No urinary frequency, No urinary urgency, No urinary incontinence, No urinary retention, No hematuria, No dysmenorrhea, No menorrhagia, No metrorrhagia, No rash, No vaginal bleeding, No vaginal discharge, No vaginal itching, No vulvodynia, No , No problem reported Neurologic: + vertigo Physical Exam Vital Signs Date Time Temp Pulse Resp B/P (MAP) Pulse Ox O2 Delivery O2 Flow Rate FiO2 07/18/17 19:10 68 18 115/76 95 Nasal Cannula 3.0 07/18/17 18:23 65 18 124/94 93 Nasal Cannula 4.0 07/18/17 18:17 37 18 115/44 89 Nasal Cannula 3.0 07/18/17 17:50 72 20 147/65 94 Nasal Cannula 2.0 07/18/17 17:34 37 07/18/17 17:23 88 Room Air 07/18/17 17:23 93 Nasal Cannula 07/18/17 17:10 68 16 140/63 88 07/18/17 16:13 70 20 169/59 93 Room Air 07/18/17 13:38 36.6 76 22 146/79 93 Room Air General Appearance: + moderate distress (due to back pain ) Head: normocephalic, atraumatic Eyes: normal inspection, PERRL, EOMI, sclerae normal ENT: normal ENT inspection Neck: thyroid normal, no JVD, no carotid bruits Respiratory/Chest: no respiratory distress, + crackles (at base) Cardiovascular: regular rate, rhythm, no JVD Abdomen/GI: normal bowel sounds, non tender, soft Extremities/Musculoskelatal: normal capillary refill, + pedal edema (1+ ) Neurologic/Psych: no motor/sensory deficits, alert, oriented x 3 Diagnostics Laboratory Results Results Past 24 Hours Test 07/18/17 17:24 07/18/17 17:50 Range/Units White Blood Count 7.11 4.8-10.8 K/uL Red Blood Count 3.95 4.2-5.4 M/uL Hemoglobin 12.8 12.0-16.0 g/dL Hematocrit 37.4 37-47 % Mean Corpuscular Volume 94.7 80-100 fL Mean Corpuscular Hemoglobin 32.4 25-34 pg Mean Corpuscular Hemoglobin Concent 34.2 32-36 g/dl Platelet Count 181 130-400 K/uL Mean Platelet Volume 9.2 7.4-10.4 fL Neutrophils (%) (Auto) 46.3 % Lymphocytes (%) (Auto) 40.5 % Monocytes (%) (Auto) 10.5 % Eosinophils (%) (Auto) 2.1 % Basophils (%) (Auto) 0.3 % Neutrophils # (Auto) 3.29 1.4-6.5 K/uL Lymphocytes # (Auto) 2.88 1.2-3.4 K/uL Monocytes # (Auto) 0.75 0.11-0.59 K/uL Eosinophils # (Auto) 0.15 0-0.5 K/uL Basophils # (Auto) 0.02 0-0.2 K/uL RDW Standard Deviation 48.4 36.4-46.3 fL RDW Coefficient of Variation 14.0 11.5-14.5 % Immature Granulocyte % (Auto) 0.3 % Immature Granulocyte # (Auto) 0.02 0.00-0.02 K/uL Sodium Level 143 136-145 mmol/L Potassium Level 3.5 3.5-5.1 mmol/L Chloride Level 106 98-107 mmol/L Carbon Dioxide Level 31 21-32 mmol/L Anion Gap 5.0 12.0 16-25 mmol/L Blood Urea Nitrogen 18 7-18 mg/dl Creatinine 1.52 0.60-1.20 mg/dl Est Creatinine Clear Calc Drug Dose 31.4 ml/min Estimated GFR () 38.7 Estimated GFR (Non- 33.4 BUN/Creatinine Ratio 11.8 10-20 Random Glucose 95 70-99 mg/dl Calcium Level 9.4 8.5-10.1 mg/dl Total Bilirubin 0.3 0.2-1 mg/dl Direct Bilirubin < 0.1 0-0.2 mg/dl Aspartate Amino Transf (AST/SGOT) 28 15-37 U/L Alanine Aminotransferase (ALT/SGPT) 24 12-78 U/L Alkaline Phosphatase 124 45-117 U/L Troponin I < 0.015 0-0.045 ng/ml Total Protein 7.2 6.4-8.2 gm/dl Albumin 3.3 3.4-5.0 gm/dl Lipase 284 73-393 U/L Bedside Hemoglobin 10.5 12.0-16.0 g/dl Bedside Hematocrit 31 37-47 % Bedside Sodium 144 135-144 mEq/L Bedside Potassium 3.5 3.3-5.0 mEq/L Bedside Chloride 107 101-112 mEq/L Bedside Total CO2 30 24-31 mEq/l Bedside Blood Urea Nitrogen 20 7-18 mg/dl Bedside Creatinine 1.3 0.6-1.3 mg/dl Bedside Glucose (other) 105 70-99 mg/dl Bedside Ionized Calcium ([place]) 1.12 1.12-1.32 mmol/l Diagnostic Radiology LUMBAR SPINE 2 OR 3 VIEWS CLINICAL HISTORY: lower back pain COMPARISON STUDY: 01/21/2015 FINDINGS: Extensive postsurgical changes are again evident. There are postsurgical changes of discectomies and interbody fusions at the L4-5 and L5-S1 levels. There is a grade 1 spinal listhesis of L4 and L5. There is thoracolumbar spinal fusion extending from the T11 through the S1 level. There are bilateral sacroiliac bolts. There are multilevel degenerative changes. There is no pathologic bowel dilatation. There are surgical clips within the right upper quadrant. IMPRESSION: Extensive postsurgical changes. No acute fractures are visualized. SINGLE VIEW CHEST CLINICAL HISTORY: Atypical chest pain. FINDINGS: An AP, portable, upright chest radiograph is compared to study dated 12/17/2014 and correlated with chest CT dated 02/13/2017. The examination is degraded by portable technique and patient rotation. The heart is enlarged and there is atherosclerotic calcification of the thoracic aorta. The pulmonary vasculature is noncongested. Chronic interstitial thickening is similar to previous. No airspace consolidation or large pleural effusion is identified. There is left basilar atelectasis. No pneumothorax is seen. The skeletal structures are osteopenic. Degenerative change and scoliosis are noted in the thoracic spine. Fusion hardware is partially imaged in the upper lumbar region. Cholecystectomy clips are noted. IMPRESSION: Cardiomegaly with no acute cardiopulmonary abnormality. CT CHEST WITH CONTRAST IMPRESSION: 1. Motion degraded examination. 2. There is no evidence of pulmonary embolus in the main, lobar, or segmental pulmonary arteries. 3. Dependent airspace opacities are present at both lung bases and likely represent atelectasis. Correlate clinically for evidence of superimposed pneumonia/aspiration pneumonitis. 4. No pleural effusion is identified. 5. Cardiomegaly. 6. Moderate hiatal hernia. 7. Additional findings as above. EKG Vent. rate 38 BPM MI interval 166 ms QRS duration 138 ms QT/QTc 516/410 ms P-R-T axes 49 23 2 Marked sinus bradycardia Right bundle branch block Abnormal ECG When compared with ECG of 18-JUL-2017 17:16, Vent. rate has decreased BY 29 BPM T wave inversion no longer evident in Anterior leads QT has shortened Confirmed by SHILO WOOD ([id number]) on 2/ Impression Assessment and Plan CHEST HEAVINESS/ experiencing intermittent chest heaviness , worse with bradycardia EKG shows marked bradycardia with T wave inversion on V1 Troponin negative ordered for Nitro paste monitor in Tele ordered serial Troponin , Resting ECHO in AM Cardiology eval pt follows with Cardiology Dr Shah at [facility] had cardiac cath done 1 month back was told -normal cardiac function , no blockage record of cardiac cath requested BRADYCARDIA : not sure of the etiology became bradycardic while having severe back pain Vasovegal response ? monitor in tele ordered for TSH Pacer pad applied pt home med Cardizem kept on hold cardiac work up as outlined above CHRONIC CHF WITH DIASTOLIC HEART FAILURE : appears to be compensated ECHO 01/04/15 : normal LV function EF 60 % Nc stress test -negative for stress induced ischemia cont out pt diuretics repeat ECHO ordered in AM INTRACTABLE BACK PAIN : hx of lumber spine DJD s/p decompression surgery Lumber spine Xray shows chronic change , no new pathology Spinal ortho Dr Diallo consulted pain control PT/OT HTN : BP stable hold Cardizem due to bradycardia TYPE 2 DM : hold oral agent Glimepiride insulin SSI ordered for Hb A1c in AM lab FULL CODE -d/w pt DVT PROPHYLAXIS : moderate risk -limited mobility due to back pain sun q heparin DISPOSITION : needs PT/OT eval prior to discharge social service consulted for discharge planning Level of Care Telemetry Resuscitation Status FULL RESUSCITATION VTE Prophylaxis VTE Risk Assessment Done? Y/N: Yes Risk Level: Moderate Given or contraindicated: Unfractionated heparin SQ
[2017-07-18] MEDS ORDERED: DEXTROSE 50% 50 ML SYR IV PRN (19:30)
[2017-07-18] MEDS ORDERED: NITROGLYCERIN 0.3 MG/1 TAB 100 TAB BTL UT PRN (19:30)
[2017-07-18] MEDS ORDERED: FLUTICASONE PROPIONATE NA SPR 16 GM BTL NAE PRN (19:30)
[2017-07-18] MEDS ORDERED: GLUCAGON FOR INJ 1 MG VIAL SQ PRN (19:30)
[2017-07-18] MEDS ORDERED: GLUCOSE 40% GEL 15 GM TUBE PO PRN (19:30)
[2017-07-18] MEDS ORDERED: GLUCOSE 10 TABS/TUBE PO PRN (19:30)
[2017-07-18] MEDS ORDERED: ALUMINUM/MAGNESIUM/SIMETH (MAALOX MAX) 30 ML UDC PO PRN (19:45)
[2017-07-18] MEDS ORDERED: ACETAMINOPHEN 325 MG TAB PO PRN (19:45)
[2017-07-18] MEDS ORDERED: POLYETHYLENE (MIRALAX) 17 GM PACK PO PRN (19:45)
[2017-07-18] MEDS ORDERED: NITROGLYCERIN 0.4 MG SL PER TAB CHARGE SL PRN (19:45)
[2017-07-18] MEDS ORDERED: MAGNESIUM HYDROXIDE SUSP 30 ML UDC PO PRN (19:45)
[2017-07-18] MEDS ORDERED: ONDANSETRON INJ 2 MG/ML 2 ML VIAL IV PRN (19:45)
[2017-07-18] MEDS ORDERED: INSULIN HUMAN REGULAR SC SCH (21:00)
[2017-07-18] MEDS ORDERED: NITROGLYCERIN 2% OINTMENT 30GM TUBE EXT ONE (21:33)
[2017-07-18 22:32] VITALS: BP 186/47; PULSE 75; TEMP 36.9; O2SAT 91; Ht 157.5 cm; Wt 75.9 kg
[2017-07-18 23:33] VITALS: BP 138/70; PULSE 56; TEMP 36.6; O2SAT 92
[2017-07-18] MEDS: POTASSIUM CHLORIDE 20 MEQ TABCR PO SCH (23:34)
[2017-07-18] MEDS: ROSUVASTATIN CALCIUM 20 MG TAB PO SCH (23:34)
[2017-07-18] MEDS: BUMETANIDE 1 MG TAB PO SCH (23:35)
[2017-07-18] MEDS: PREGABALIN 50 MG CAP PO SCH (23:38)
[2017-07-18] MEDS: HEPARIN SOD 5000 UNIT/0.5 ML CARP SQ SCH (23:38)
[2017-07-19 00:26] VITALS: PULSE 53; O2SAT 92
[2017-07-19] MEDS: OXYCODONE HCL IR 5 MG TAB (IMMEDIATE RELEASE) PO PRN ×2 (01:18→17:40)
[2017-07-19] MEDS: HEPARIN SOD 5000 UNIT/0.5 ML CARP SQ SCH ×3 (06:41→19:49)
[2017-07-19] MEDS: NITROGLYCERIN 2% OINTMENT 30GM TUBE EXT SCH ×2 (06:46→10:00)
[2017-07-19] MEDS: INSULIN ASPART 100 UNITS/ML 3 ML PEN SC SCH ×4 (07:00→20:44)
[2017-07-19 08:01] LABS: HEMATOCRIT 35.5 % (37-47); HEMOGLOBIN 11.6 g/dL (12.0-16.0); MEAN CELL VOLUME 95.9 fL (80-100); MEAN CORPUSCULAR HEMOGLOBIN 31.4 pg (25-34); MEAN CORPUSCULAR HGB CONC 32.7 g/dl (32-36); MEAN PLATELET VOLUME 9.3 fL (7.4-10.4); PLATELET COUNT 170 K/uL (130-400); RED CELL DISTRIBUTION WIDTH CV 14.4 % (11.5-14.5); WHITE BLOOD COUNT 5.47 K/uL (4.8-10.8)
[2017-07-19] MEDS: ASCORBIC ACID 500 MG TAB PO SCH (08:14)
[2017-07-19] MEDS: CHOLECALCIFEROL 1000 INTER.UNIT TAB PO SCH (08:14)
[2017-07-19] MEDS: ASPIRIN 81 MG ECTAB PO SCH (08:14)
[2017-07-19] MEDS: FERROUS SULFATE 325 MG TAB PO SCH (08:15)
[2017-07-19] MEDS: SERTRALINE HCL 50 MG TAB PO SCH (08:15)
[2017-07-19] MEDS: PANTOprazole SOD 40 MG TAB PO SCH (08:15)
[2017-07-19] MEDS: CEROVITE ADV FORMULA TAB PO SCH (08:15)
[2017-07-19] MEDS: BUMETANIDE 1 MG TAB PO SCH ×2 (08:16→17:35)
[2017-07-19] MEDS: POTASSIUM CHLORIDE 20 MEQ TABCR PO SCH ×2 (08:16→19:43)
[2017-07-19 08:21] LABS: HEMOGLOBIN A1C 6.7 % (4.5-5.6)
[2017-07-19] MEDS: PREGABALIN 50 MG CAP PO SCH ×2 (08:32→19:46)
[2017-07-19 08:33] LABS: CREATININE 1.37 mg/dl (0.60-1.20); POTASSIUM 4.1 mmol/L (3.5-5.1)
[2017-07-19] MEDS: HYDROCODONE/ACETAMIN 5/325MG TAB PO PRN ×2 (08:52→19:47)
--- NOTE | 2017-07-19 09:51 | ECHOCARDIOGRAM REPORT ---
*NOTICE TO RECEIVING CONSTITUTION PARTY AGENCY This information is strictly Confidential and protected under [place] law. [place] law prohibits you from making any further disclosure of this information unless further disclosure is expressly permitted by the written consent of the person to whom it pertains or is authorized by law. A general authorization for the release of medical or other information is not sufficient for this purpose. Hospital accepts no responsibility if the information is made available to any other person, INCLUDING THE PATIENT. Interpretation Summary * Name: SUDEEP VILLALOBOS Study Date: 07/19/2017 06:49 AM BP: 186/47 mmHg * Patient Location: [facility] HR: 58 * : 1945 (M/d/yyyy) Gender: Female Height: 62 in * Age: 72 yrs Ethnicity: [place] Weight: 171 lb * Ordering Physician: Shanthi Metzger * Referring Physician: Acosta Diallo D.O. * Performed By: Lynn Garcia RDCS * * Reason For Study: CHEST PAIN * BSA: 1.8 m2 * -- Conclusions -- * Normal LV chamber size with mild concentric LVH. * Normal LV systolic function, EF 55-60%. * No segmental left ventricular wall motion abnormalities are noted. * Grade I diastolic dysfunction. * Thickened and angulated mitral valve leaflets with mild mitral regurgitation. * Mild left atrial enlargement. Procedure Details * A complete two-dimensional transthoracic echocardiogram was performed (2D, M-mode, Doppler and color flow Doppler). Left Ventricle * The left ventricle is normal in size. * There is mild concentric left ventricular hypertrophy. * Ejection Fraction = 55-60%. * Left ventricular systolic function is normal. * No segmental left ventricular wall motion abnormalities are noted. * The left ventricular wall motion is normal. Right Ventricle * The right ventricular cavity size is normal (basal dimension <4.2 cm in right ventricular apical 4-chamber view). * The right ventricular systolic function is normal as assessed by tricuspid annular plane systolic excursion (TAPSE) (normal >1.5 cm). Atria * The left atrium is mildly dilated. * Right atrial size is normal. * No ASD detected; PFO is not assessed. Mitral Valve * The mitral valve leaflets appear thickened, but open well. * There is no mitral valve stenosis. * There is mild mitral regurgitation. Tricuspid Valve * The tricuspid valve anatomy is normal. * There is no tricuspid stenosis. * There is mild tricuspid regurgitation. Aortic Valve * The aortic valve is normal in structure and function. Pulmonic Valve * The pulmonary valve is not well seen, but the Doppler examination is normal without significant regurgitation or stenosis. Great Vessels * The aortic root is normal size. Pericardium/Pleural * There is no pericardial effusion. Left Ventricular Diastolic Function * Grade I diastolic dysfunction, (abnormal relaxation pattern). MMode 2D Measurements and Calculations IVSd 1.1 cm IVSs 1.3 cm LVIDd 4.3 cm LVIDs 3.1 cm LVPWd 1.1 cm LVPWs 1.4 cm IVS/LVPW 0.96 FS 28.3 % EDV(Teich) 81.1 ml ESV(Teich) 36.5 ml EF(Teich) 55.0 % EDV(cubed) 77.1 ml ESV(cubed) 28.5 ml EF(cubed) 63.1 % % IVS thick 27.4 % % LVPW thick 29.7 % LV mass(C)d 155.3 grams LV mass(C)dI 86.8 grams/m\S\2 LV mass(C)s 140.7 grams LV mass(C)sI 78.7 grams/m\S\2 SV(Teich) 44.6 ml SI(Teich) 24.9 ml/m\S\2 SV(cubed) 48.7 ml SI(cubed) 27.2 ml/m\S\2 Ao root diam 2.8 cm Ao root area 6.1 cm\S\2 LA dimension 3.7 cm LA/Ao 1.3 LVAd ap4 26.4 cm\S\2 LVLd ap4 8.0 cm EDV(MOD-sp4) 71.7 ml EDV(sp4-el) 74.3 ml LVAs ap4 15.9 cm\S\2 LVLs ap4 6.7 cm ESV(MOD-sp4) 32.6 ml ESV(sp4-el) 32.1 ml EF(MOD-sp4) 54.5 % EF(sp4-el) 56.8 % LVAd ap2 24.5 cm\S\2 LVLd ap2 8.0 cm EDV(MOD-sp2) 64.3 ml EDV(sp2-el) 63.8 ml LVAs ap2 14.9 cm\S\2 LVLs ap2 6.8 cm ESV(MOD-sp2) 27.7 ml ESV(sp2-el) 27.9 ml EF(MOD-sp2) 56.9 % EF(sp2-el) 56.4 % LVLd %diff 0.02 % EDV(MOD-bp) 68.0 ml LVLs %diff 1.5 % ESV(MOD-bp) 30.2 ml EF(MOD-bp) 55.5 % SV(MOD-sp4) 39.1 ml SI(MOD-sp4) 21.8 ml/m\S\2 SV(MOD-sp2) 36.6 ml SI(MOD-sp2) 20.5 ml/m\S\2 SV(MOD-bp) 37.8 ml SI(MOD-bp) 21.1 ml/m\S\2 SV(sp4-el) 42.2 ml SI(sp4-el) 23.6 ml/m\S\2 SV(sp2-el) 36.0 ml SI(sp2-el) 20.1 ml/m\S\2 Doppler Measurements and Calculations MV E max sheela 88.4 cm/sec MV A max sheela 121.9 cm/sec MV E/A 0.73 MV dec time 0.26 sec Ao V2 max 161.3 cm/sec Ao max PG 10.4 mmHg Ao max PG (full) 7.6 mmHg LV V1 max PG 2.9 mmHg LV V1 max 84.6 cm/sec TR max sheela 264.2 cm/sec
--- NOTE | 2017-07-19 10:42 | Clinical Documentation Query ---
WALLACE Pineda : CLINICAL DOCUMENTATION QUERY Patient is a 72 year old female admitted for evaluation of chest heaviness in the setting of bradycardia. Admission BUN, creatinine, and estimated GFR were 18 mg/dl, 1.52 mg/dl, and 33 ml/min. Estimated GFR range from 12/17/14 to present of 29-50 ml/min. Please clarify as clinically appropriate. Thank you. In your clinical opinion is this patient being managed for: ( ) Chronic kidney disease, stage 3 ( ) Not Agree ( ) Other explanation of clinical findings (Please Explain) ( ) Unable to determine (Please Define) ( ) Need to Discuss The medical record reflects the following clinical findings, treatment, and risk factors. Clinical Indicators: As above Treatment: Serial chemistries Risk Factors: Age, chronic diastolic CHF, hypertension Please clarify and document your clinical opinion in the progress notes and discharge summary. Terms such as "probable", "suspected", "likely", "questionable", "possible", or "still to be ruled out" are acceptable. IF IN AGREEMENT, YOU MUST DOCUMENT ABOVE DIAGNOSTIC STATEMENT IN DAILY PROGRESS NOTES AND DISCHARGE SUMMARY. This document is not part of the patient's record. Thank You, Armani Mondragon, RN [phone]
--- NOTE | 2017-07-19 10:45 | CARDIOLOGY CONSULTATION ---
DATE OF CONSULTATION: 07/19/2017 INPATIENT CONSULTATION CONSULTATION REQUESTED BY: Dr. Olmstead. REASON FOR CONSULTATION: Bradycardia and chest pain. HISTORY OF PRESENT ILLNESS: Mrs. Marcano is a very pleasant 72-year-old woman who normally follows with a drop wire aliner in [place]. She presented to [facility] Emergency Department on 07/18/2017 with a complaint of severe back pain after slipping on her kitchen floor. Upon presentation to the Emergency Department, she was in significant pain in her back but then she had pain that seemed to radiate from her chest into her back as well. The patient took her own nitroglycerin without alerting any ER staff and shortly thereafter she became rather bradycardic and slightly hypotensive. Her heart rates dropped into the 30s. Dr. Olmstead paged me as the on-call physician, I reviewed the EKGs and the patient was in sinus event. The patient felt a little lightheaded with the event, but otherwise well. So, the decision was made to admit the patient to telemetry with IV fluids, her potassium being repeated and holding her outpatient diltiazem. Overnight, the patient did well. She still has significant back pain but no further chest pain and no further bradycardic events on monitor. The patient states that she is not quite sure why she has been on Cardizem, but she states that she has been on it for over 25 years now, but she has never had any arrhythmias that she knows of. Also of note, the patient was recently catheterized 3 weeks ago in [place] and she reports her cardiac catheterization was normal. PAST SURGICAL HISTORY: 1. Recent cardiac catheterization report is normal. 2. Spinal decompression surgery. MEDICAL ILLNESSES: 1. Hypertension. 2. Diabetes. 3. Diastolic dysfunction. 4. Chronic back pain. 5. Dyslipidemia. 6. Depression. 7. GERD. FAMILY HISTORY: Noncontributory. SOCIAL HISTORY: Denies any alcohol, tobacco or recreational drug use. She is . She lives at home with her . Her daughter is present with her during examination today. She is retired. ALLERGIES: 1. CEPHALEXIN. 2. CIPRO. MEDICATIONS AN OUTPATIENT: 1. Aspirin 81 mg daily. 2. Bumex 2 mg b.i.d. 3. Diltiazem extended release 360 mg daily. 4. Glipizide daily. 5. Potassium chloride 40 mEq b.i.d. 6. Lyrica b.i.d. 7. Crestor 20 mg daily. 8. Sertraline daily. 9. Iron daily. 10. Esomeprazole daily. REVIEW OF SYSTEMS: As per HPI, all other review of systems reviewed and negative at this time. PHYSICAL EXAMINATION: VITALS: Temperature 36.6, pulse 56, respiratory rate 12, blood pressure 138/70. GENERAL: Awake, alert, oriented x3, sitting upright in bed eating breakfast, no acute distress. HEENT: Normocephalic, atraumatic. Pupils equal, round, and reactive to light and accommodation. Extraocular muscles intact. Anicteric sclerae. Moist mucous membranes. NECK: No JVD, no bruit. CARDIOVASCULAR: Regular. Positive S4. Normal S1 and S2. No S3. A 2/6 holosystolic ejection murmur greatest at the left sternal border midclavicular line with radiation to the axilla. No rubs. PULMONARY: Clear to auscultation bilaterally. No rales, rhonchi, or wheezing. ABDOMEN: Bowel sounds x4, soft. No rebound, guarding, tenderness. No organomegaly. EXTREMITIES: No clubbing, cyanosis or edema. +2 pedal pulses bilaterally. SKIN: Warm and dry. TEST RESULTS: Initial EKG performed in the Emergency Department on July 18 at 1716 independently reviewed at this time shows sinus bradycardia at 67 beats per minute with first degree AV block, right bundle branch block pattern, no signs of any significant ischemia, no significant change compared to previous study of 2014. Repeat EKG at 1728 shows marked sinus bradycardia at 38 beats per minute, again with underlying right bundle branch block. Review of telemetry monitoring overnight shows sinus bradycardia in the 50s-60s, with no significant arrhythmias or blocks. A 2D echocardiogram read as normal LV chamber size with mild concentric LVH, normal LV systolic function, EF 55-60%. No segmental left ventricle wall motion abnormalities were noted, grade 1 diastolic dysfunction, thickened and angulated mitral valve leaflets with mild mitral regurgitation, mild left atrial enlargement. IMPRESSION: 1. Transient bradycardia likely vasovagal in nature. 2. Chest pain likely referred pain from the back. 3. Recent unremarkable cardiac catheterization as per patient. RECOMMENDATIONS: It was my pleasure to see Mrs. Marcano in consultation today. The patient and her daughter were counseled that given the clinical setting her transient bradycardia was most likely vasovagal in nature, exacerbated by her chronic Cardizem use. So at this time, I recommend not restarting the Cardizem and controlling her pain as best as possible. Otherwise, her chest pain appears to be referred pain especially in the setting of her recent negative cardiac catheterization, so no further cardiac testing or intervention is necessary at this time. I recommend the patient continue to follow up with her primary drop wire aliner as an outpatient.
[2017-07-19] MEDS ORDERED: NURSING VERBAL MED ORDER ONE (11:00)
[2017-07-19 11:07] VITALS: BP 120/69; PULSE 67; TEMP 36.9; O2SAT 95
[2017-07-19] MEDS ORDERED: CONSULT PHARMACY STA (12:54)
--- NOTE | 2017-07-19 13:17 | Progress Note ---
Medicine Progress Note Date & Time of Visit: Jul 19, 2017 at 13:11. Subjective patient seen resting in bed, comfortable, in good spirits states back pain is much better- now only moderate able to ambulate with no problems denies weakness, numbness, paresthesias, incontinence denies chest pain, dyspnea, dizziness, palpitations no nausea/vomiting has cough with white phlegm intermittently denies problems with swallow denies other symptoms eager for discharge today Objective Last 8 Hrs Date Time Temp Pulse Resp B/P (MAP) Pulse Ox O2 Delivery O2 Flow Rate FiO2 07/19/17 11:07 36.9 67 18 120/69 (86) 95 Nasal Cannula 2.0 07/19/17 08:00 Nasal Cannula 3.0 Physical Exam: General- oriented x 3, not in distress, speaks in sentences with no ef Head- atraumatic Eyes- PERRL, EOMI, anicteric ENT- oropharynx clear Neck- supple, no JVD, no adenopathy, no thyromegaly; carotids +2/2 Lungs- clear breath sounds bilaterally, no rales/wheezes Heart- regular rhythm; no murmur, normal rate Abdomen- normal bowel sounds, soft, nontender Extremities- mild lower leg edema, no calf tenderness; peripheral pulses intact Neuro- alert, oriented x 3; no gross focal deficits Skin- warm & dry Laboratory Results: Last 24 Hours Test 07/18/17 17:24 07/18/17 17:50 07/18/17 20:30 07/18/17 22:34 White Blood Count 7.11 K/uL Red Blood Count 3.95 M/uL Hemoglobin 12.8 g/dL Hematocrit 37.4 % Mean Corpuscular Volume 94.7 fL Mean Corpuscular Hemoglobin 32.4 pg Mean Corpuscular Hemoglobin Concent 34.2 g/dl Platelet Count 181 K/uL Mean Platelet Volume 9.2 fL Neutrophils (%) (Auto) 46.3 % Lymphocytes (%) (Auto) 40.5 % Monocytes (%) (Auto) 10.5 % Eosinophils (%) (Auto) 2.1 % Basophils (%) (Auto) 0.3 % Neutrophils # (Auto) 3.29 K/uL Lymphocytes # (Auto) 2.88 K/uL Monocytes # (Auto) 0.75 K/uL Eosinophils # (Auto) 0.15 K/uL Basophils # (Auto) 0.02 K/uL RDW Standard Deviation 48.4 fL RDW Coefficient of Variation 14.0 % Immature Granulocyte % (Auto) 0.3 % Immature Granulocyte # (Auto) 0.02 K/uL Prothrombin Time 10.4 SECONDS Prothromb Time International Ratio 1.0 Sodium Level 143 mmol/L Potassium Level 3.5 mmol/L Chloride Level 106 mmol/L Carbon Dioxide Level 31 mmol/L Anion Gap 5.0 mmol/L 12.0 mmol/L Blood Urea Nitrogen 18 mg/dl Creatinine 1.52 mg/dl Est Creatinine Clear Calc Drug Dose 31.4 ml/min Estimated GFR () 38.7 Estimated GFR (Non- 33.4 BUN/Creatinine Ratio 11.8 Random Glucose 95 mg/dl Calcium Level 9.4 mg/dl Total Bilirubin 0.3 mg/dl Direct Bilirubin < 0.1 mg/dl Aspartate Amino Transf (AST/SGOT) 28 U/L Alanine Aminotransferase (ALT/SGPT) 24 U/L Alkaline Phosphatase 124 U/L Troponin I < 0.015 ng/ml Pro-B-Type Natriuretic Peptide 200 pg/ml Total Protein 7.2 gm/dl Albumin 3.3 gm/dl Lipase 284 U/L Bedside Hemoglobin 10.5 g/dl Bedside Hematocrit 31 % Bedside Sodium 144 mEq/L Bedside Potassium 3.5 mEq/L Bedside Chloride 107 mEq/L Bedside Total CO2 30 mEq/l Bedside Blood Urea Nitrogen 20 mg/dl Bedside Creatinine 1.3 mg/dl Bedside Glucose (other) 105 mg/dl Bedside Ionized Calcium ([place]) 1.12 mmol/l Urine Color YELLOW Urine Appearance SL CLOUDY Urine pH 7.0 Urine Specific Bode 1.010 Urine Protein NEG Urine Glucose (UA) NEG Urine Ketones NEG Urine Occult Blood TRACE Urine Nitrite POS Urine Bilirubin NEG Urine Urobilinogen NEG Urine Leukocyte Esterase SMALL Urine RBC 5-10 /hpf Urine WBC 5-10 /hpf Urine Epithelial Cells >30 /lpf Urine Bacteria 4+ Urine Hyaline Casts 1-5 /lpf Bedside Glucose 249 mg/dl Test 07/19/17 01:08 07/19/17 07:36 07/19/17 08:42 07/19/17 11:06 Troponin I 0.016 ng/ml < 0.015 ng/ml White Blood Count 5.47 K/uL Red Blood Count 3.70 M/uL Hemoglobin 11.6 g/dL Hematocrit 35.5 % Mean Corpuscular Volume 95.9 fL Mean Corpuscular Hemoglobin 31.4 pg Mean Corpuscular Hemoglobin Concent 32.7 g/dl RDW Standard Deviation 51.0 fL RDW Coefficient of Variation 14.4 % Platelet Count 170 K/uL Mean Platelet Volume 9.3 fL Sodium Level 142 mmol/L Potassium Level 4.1 mmol/L Chloride Level 107 mmol/L Carbon Dioxide Level 31 mmol/L Anion Gap 4.0 mmol/L Blood Urea Nitrogen 16 mg/dl Creatinine 1.37 mg/dl Est Creatinine Clear Calc Drug Dose 34.8 ml/min Estimated GFR () 43.9 Estimated GFR (Non- 37.9 BUN/Creatinine Ratio 11.7 Random Glucose 56 mg/dl Estimated Average Glucose 146 mg/dl Hemoglobin A1c 6.7 % Calcium Level 9.0 mg/dl Magnesium Level 2.4 mg/dl Thyroid Stimulating Hormone (TSH) 3.040 uIu/ml Bedside Glucose 77 mg/dl 94 mg/dl Date/Time Source Procedure Growth Status 07/18/17 20:30 Urine , Clean Catch Urine Culture - Preliminary Gram Negative Bacilli Resulted Assessment & Plan INTRACTABLE BACK PAIN hx of lumber spine DJD s/p decompression surgery Lumber spine Xray shows: no acute fractures, post surgical changes Spinal ortho Dr Diallo consulted , awaiting recommendations -- pain much better continue PRN analgesics Dr. Diallo's recommendations: ff up as outpatient -- PT/OT: home PT CHEST HEAVINESS, BRADYCARDIA likely VASOVAGAL ETIOLOGY , SECONDARY TO PAIN experiencing intermittent chest heaviness , worse with bradycardia Troponin negative echo: no signs of ischemia Cardiology consulted - Dr. Brooks HR now improved no further interventions at this time recommend not to resume Diltiazem in the future CHRONIC CHF WITH DIASTOLIC HEART FAILURE : appears to be compensated ECHO 01/04/15 : normal LV function EF 60 % Nc stress test -negative for stress induced ischemia cont out pt diuretics repeat ECHO ordered HYPOXIA POSSIBLE BILATERAL LOWER LOBE PNEUMONIA, R/O ASPIRATION, ATELECTASIS UNDERLYING PULMONARY HYPERTENSION CT chest: The pulmonary trunk is mildly dilated measuring 3.1 cm in diameter. This suggests pulmonary artery hypertension. There are no filling defects identified in main, lobar, or segmental pulmonary branches to suggest pulmonary embolus. 1. Motion degraded examination. 2. There is no evidence of pulmonary embolus in the main, lobar, or segmental pulmonary arteries. 3. Dependent airspace opacities are present at both lung bases and likely represent atelectasis. Correlate clinically for evidence of superimposed pneumonia/aspiration pneumonitis. 4. No pleural effusion is identified. 5. Cardiomegaly. 6. Moderate hiatal hernia. 7. Additional findings as above. confirm with 2 step exercise test start Doxycycline 100mg BID Incentive Spirometry Speech Therapy Evaluation will need repeat imaging as outpatient check for resolution HTN : BP stable hold Cardizem due to bradycardia TYPE 2 DM : hold oral agent Glimepiride insulin SSI A1c 6.7 FULL CODE -d/w pt DVT PROPHYLAXIS : moderate risk -limited mobility due to back pain sun q heparin DISPOSITION : anticipate d/c home tomorrow ff up with PCP ff up with Ortho may need Pulmonary Eval Current Inpatient Medications: Current Inpatient Medications Medications (Trade) Dose Ordered Sig/Jose Route Start Time Stop Time Status Last Admin Dose Admin Ioversol (Optiray 320) 111 ml UD PRN IV 07/18/17 17:45 07/22/17 17:44 Aspirin (Ecotrin Tab) 81 mg QAM PO 07/19/17 09:00 08/18/17 08:59 07/19/17 08:14 81 MG Bumetanide (Bumex Tab) 2 mg BID17 PO 07/18/17 21:00 08/17/17 20:59 07/19/17 08:16 2 MG Fluticasone Propionate (Flonase Nasal [place]) 2 sprays DAILY PRN LAURIE 07/18/17 19:30 08/17/17 19:29 Acetaminophen/ Hydrocodone Bitart ([place] 5/325 Tab) 1 tab Q6H PRN PO 07/18/17 19:30 08/01/17 19:29 07/19/17 08:52 1 TAB Multivitamins/ Minerals (Multivitamin W/ Minerals Tab) 1 tab DAILY PO 07/19/17 09:00 08/18/17 08:59 07/19/17 08:15 1 TAB Nitroglycerin (Nitrostat Tab) 0.3 mg UD PRN UT 07/18/17 19:30 08/17/17 19:29 Oxycodone HCl (Roxicodone Immediate Rel Tab) 5 mg Q6H PRN PO 07/18/17 19:30 08/01/17 19:29 07/19/17 01:18 5 MG Potassium Chloride (Klor-Con Tab) 40 meq BID PO 07/18/17 21:00 08/17/17 20:59 07/19/17 08:16 40 MEQ Pregabalin (Lyrica Cap) 50 mg BID PO 07/18/17 21:00 08/17/17 20:59 07/19/17 08:32 50 MG Rosuvastatin Calcium (Crestor Tab) 20 mg QPM PO 07/18/17 21:00 08/17/17 20:59 07/18/17 23:34 20 MG Ascorbic Acid (Vitamin C Tab) 500 mg QAM PO 07/19/17 09:00 08/18/17 08:59 07/19/17 08:14 500 MG Cholecalciferol (Vitamin D Tab) 2,000 inter.unit DAILY PO 07/19/17 09:00 08/18/17 08:59 07/19/17 08:14 2,000 INTER.UNIT Pantoprazole Sodium (Protonix Tab) 40 mg QAM PO 07/19/17 09:00 08/18/17 08:59 07/19/17 08:15 40 MG Ferrous Sulfate (Feosol Tab) 325 mg DAILY PO 07/19/17 09:00 08/18/17 08:59 07/19/17 08:15 325 MG Sertraline HCl (Zoloft Tab) 25 mg DAILY PO 07/19/17 09:00 08/18/17 08:59 07/19/17 08:15 25 MG Glucose (Glucose 40% Gel) 15-30 GRAMS 15 GRAMS... UD PRN PO 07/18/17 19:30 08/17/17 19:29 Glucose (Glucose Chew Tab) 4-8 Tablets 4 Tabl... UD PRN PO 07/18/17 19:30 08/17/17 19:29 Dextrose (Dextrose 50% 50ML Syringe) 25-50ML OF 50% DW IV FOR... UD PRN IV 07/18/17 19:30 08/17/17 19:29 Glucagon (Glucagon Inj) 1 mg UD PRN SQ 07/18/17 19:30 08/17/17 19:29 Heparin Sodium (Porcine) (Heparin Sq 5000 Unit/0.5ml) 5,000 unit Q8 SQ 07/18/17 22:00 08/17/17 21:59 07/19/17 06:41 5,000 UNIT Acetaminophen (Tylenol Tab) 650 mg Q4H PRN PO 07/18/17 19:45 08/17/17 19:44 Al Hydrox/Mg Hydrox/Simethicone (Maalox Max Susp) 15 ml Q4H PRN PO 07/18/17 19:45 08/17/17 19:44 Magnesium Hydroxide (Milk Of Magnesia Susp) 30 ml Q12H PRN PO 07/18/17 19:45 08/17/17 19:44 Ondansetron HCl (Zofran Inj) 4 mg Q6H PRN IV 07/18/17 19:45 08/17/17 19:44 Polyethylene (Miralax Powder Packet) 17 gm DAILY PRN PO 07/18/17 19:45 08/17/17 19:44 Insulin Aspart (novoLOG ASPART) SLIDING SCALE If C... ACHS SC 07/19/17 07:00 08/18/17 06:59 Miscellaneous Information (Pharmacy Consult) 1 ea NOW STAT N/A 07/19/17 12:54 07/19/17 12:55 UNV
[2017-07-19] MEDS ORDERED: AZTREONAM CONSULT ACTIVE PRN (13:45)
[2017-07-19] MEDS ORDERED: AZTREONAM IV 1,000 MG in DEXTROSE 5% 100ML IV SCH (14:00)
[2017-07-19 14:59] VITALS: BP 117/66; PULSE 68; TEMP 36.7; O2SAT 94
--- NOTE | 2017-07-19 15:06 | Orthopedic Consultation ---
Orthopedic Consultation Date of Consultation: Jul 19, 2017. Attending Physician: Edgar Deng MD Reason for Consultation: Back pain History of Present Illness This is a 72-year-old female well-known to me the presents to the emergency room last evening the onset of severe lumbosacral back pain. She states she was bending over at home to wipe up some water on the floor had immediate onset of pain. It was quite debilitating in nature and substernally she came to the ER for evaluation. At that time she was diagnosed with bradycardia and was admitted to the PACU. She states her pain is on the left lumbosacral junction. His improved as of my discussion with her at this time. She states she's tolerated with both occupational as well as physical therapy. She denies any radicular component to her pain. Denies any leg weakness. Denies any sensory changes. Past Medical/Surgical History Medical Problems: (1) Back pain Status: Acute (2) Muscle strain Status: Acute (3) Precordial chest pain Status: Acute Social History Smoking Status: Never Smoker Smokeless Tobacco Use: No Drug Use: none Marital Status: Housing Status: lives with significant other Occupation Status: retired Allergies Coded Allergies: Cephalexin (Verified Allergy, Unknown, RASH, 01/18/15) Ciprofloxacin (Verified Allergy, Unknown, UNKNOWN, 01/18/15) Home Medications Scheduled Ascorbic Acid (Vitamin C), 500 MG PO QAM Aspirin (Aspirin Ec), 81 MG PO QAM Bumetanide (Bumex), 2 MG PO BID Cholecalciferol (Vitamin D3), 2,000 INTER.UNIT PO DAILY Diltiazem Hcl Extended Release (Tiazac 360 Mg), 360 MG PO QAM Esomeprazole Magnesium (Esomeprazole Magnesium), 40 MG PO QAM Ferrous Sulfate (Ferrous Sulfate), 325 MG PO DAILY Glipizide (Glipizide Xl), 5 MG PO DAILY Multiple Vitamins W/ Minerals (Centrum Adults), 1 TAB PO DAILY Potassium Chloride Microencaps (Potassium Chloride Er), 40 MEQ PO BID Pregabalin (Lyrica), 50 MG PO BID Rosuvastatin Calcium (Rosuvastatin Calcium), 20 MG PO QPM Sertraline HCl (Sertraline HCl), 25 MG PO DAILY Scheduled PRN Fluticasone Propionate (Fluticasone Propionate), 2 SPRAYS LAURIE DAILY PRN for Allergy Symptoms Hydrocodone/Acetaminophen 5MG/325MG ([place] 5MG/325MG), 1 TABLET PO Q6H PRN for Pain Metolazone (Metolazone), 2.5 MG PO 3XWK PRN for Fluid Retention Nitroglycerin (Nitrostat), 0.3 MG UT UD PRN for Chest Pain Oxycodone Immediate Rel Tab (Roxicodone Ir), 5 MG PO Q6H PRN for Pain Current Inpatient Medications Current Inpatient Medications Medications (Trade) Dose Ordered Sig/Jose Route Start Time Stop Time Status Last Admin Dose Admin Ioversol (Optiray 320) 111 ml UD PRN IV 07/18/17 17:45 07/22/17 17:44 Aspirin (Ecotrin Tab) 81 mg QAM PO 07/19/17 09:00 08/18/17 08:59 07/19/17 08:14 81 MG Bumetanide (Bumex Tab) 2 mg BID17 PO 07/18/17 21:00 08/17/17 20:59 07/19/17 08:16 2 MG Fluticasone Propionate (Flonase Nasal [place]) 2 sprays DAILY PRN LAURIE 07/18/17 19:30 08/17/17 19:29 Acetaminophen/ Hydrocodone Bitart ([place] 5/325 Tab) 1 tab Q6H PRN PO 07/18/17 19:30 08/01/17 19:29 07/19/17 08:52 1 TAB Multivitamins/ Minerals (Multivitamin W/ Minerals Tab) 1 tab DAILY PO 07/19/17 09:00 08/18/17 08:59 07/19/17 08:15 1 TAB Nitroglycerin (Nitrostat Tab) 0.3 mg UD PRN UT 07/18/17 19:30 08/17/17 19:29 Oxycodone HCl (Roxicodone Immediate Rel Tab) 5 mg Q6H PRN PO 07/18/17 19:30 08/01/17 19:29 07/19/17 01:18 5 MG Potassium Chloride (Klor-Con Tab) 40 meq BID PO 07/18/17 21:00 08/17/17 20:59 07/19/17 08:16 40 MEQ Pregabalin (Lyrica Cap) 50 mg BID PO 07/18/17 21:00 08/17/17 20:59 07/19/17 08:32 50 MG Rosuvastatin Calcium (Crestor Tab) 20 mg QPM PO 07/18/17 21:00 08/17/17 20:59 07/18/17 23:34 20 MG Ascorbic Acid (Vitamin C Tab) 500 mg QAM PO 07/19/17 09:00 08/18/17 08:59 07/19/17 08:14 500 MG Cholecalciferol (Vitamin D Tab) 2,000 inter.unit DAILY PO 07/19/17 09:00 08/18/17 08:59 07/19/17 08:14 2,000 INTER.UNIT Pantoprazole Sodium (Protonix Tab) 40 mg QAM PO 07/19/17 09:00 08/18/17 08:59 07/19/17 08:15 40 MG Ferrous Sulfate (Feosol Tab) 325 mg DAILY PO 07/19/17 09:00 08/18/17 08:59 07/19/17 08:15 325 MG Sertraline HCl (Zoloft Tab) 25 mg DAILY PO 07/19/17 09:00 08/18/17 08:59 07/19/17 08:15 25 MG Glucose (Glucose 40% Gel) 15-30 GRAMS 15 GRAMS... UD PRN PO 07/18/17 19:30 08/17/17 19:29 Glucose (Glucose Chew Tab) 4-8 Tablets 4 Tabl... UD PRN PO 07/18/17 19:30 08/17/17 19:29 Dextrose (Dextrose 50% 50ML Syringe) 25-50ML OF 50% DW IV FOR... UD PRN IV 07/18/17 19:30 08/17/17 19:29 Glucagon (Glucagon Inj) 1 mg UD PRN SQ 07/18/17 19:30 08/17/17 19:29 Heparin Sodium (Porcine) (Heparin Sq 5000 Unit/0.5ml) 5,000 unit Q8 SQ 07/18/17 22:00 08/17/17 21:59 07/19/17 14:06 5,000 UNIT Acetaminophen (Tylenol Tab) 650 mg Q4H PRN PO 07/18/17 19:45 08/17/17 19:44 Al Hydrox/Mg Hydrox/Simethicone (Maalox Max Susp) 15 ml Q4H PRN PO 07/18/17 19:45 08/17/17 19:44 Magnesium Hydroxide (Milk Of Magnesia Susp) 30 ml Q12H PRN PO 07/18/17 19:45 08/17/17 19:44 Ondansetron HCl (Zofran Inj) 4 mg Q6H PRN IV 07/18/17 19:45 08/17/17 19:44 Polyethylene (Miralax Powder Packet) 17 gm DAILY PRN PO 07/18/17 19:45 08/17/17 19:44 Insulin Aspart (novoLOG ASPART) SLIDING SCALE If C... ACHS SC 07/19/17 07:00 08/18/17 06:59 Aztreonam (Consult) 1 ea UD PRN N/A 07/19/17 13:45 08/18/17 13:44 Aztreonam 1000 mg/ Dextrose 110 ml @ 110 mls/hr Q12H IV 07/19/17 14:00 07/24/17 13:59 07/19/17 14:25 110 MLS/HR Physical Exam Date Time Temp Pulse Resp B/P (MAP) Pulse Ox O2 Delivery O2 Flow Rate FiO2 07/19/17 12:00 Nasal Cannula 2.0 07/19/17 11:07 36.9 67 18 120/69 (86) 95 Nasal Cannula 2.0 07/19/17 08:00 Nasal Cannula 3.0 07/19/17 04:00 CPAP 07/19/17 00:26 53 92 3.0 07/19/17 00:00 CPAP 07/18/17 23:33 36.6 56 17 138/70 (92) 92 Nasal Cannula 3.0 07/18/17 22:32 36.9 75 24 186/47 91 Nasal Cannula 3.0 07/18/17 22:30 36.6 78 20 133/78 94 07/18/17 21:30 78 20 133/78 94 Nasal Cannula 2.0 07/18/17 19:32 70 20 123/53 96 Nasal Cannula 2.0 07/18/17 19:10 68 18 115/76 95 Nasal Cannula 3.0 07/18/17 18:23 65 18 124/94 93 Nasal Cannula 4.0 07/18/17 18:17 37 18 115/44 89 Nasal Cannula 3.0 07/18/17 17:50 72 20 147/65 94 Nasal Cannula 2.0 07/18/17 17:34 37 07/18/17 17:23 88 Room Air 07/18/17 17:23 93 Nasal Cannula 07/18/17 17:10 68 16 140/63 88 07/18/17 16:13 70 20 169/59 93 Room Air On physical exam she has +5 out of 5 bilateral plantar flexion dorsiflexion quadriceps. Sensory is symmetric and intact. She is negative logroll. She has some tenderness to palpation over the left SI joint. Laboratory Results Last 24 Hours Test 07/18/17 17:24 07/18/17 17:50 07/18/17 20:30 07/18/17 22:34 White Blood Count 7.11 K/uL Red Blood Count 3.95 M/uL Hemoglobin 12.8 g/dL Hematocrit 37.4 % Mean Corpuscular Volume 94.7 fL Mean Corpuscular Hemoglobin 32.4 pg Mean Corpuscular Hemoglobin Concent 34.2 g/dl Platelet Count 181 K/uL Mean Platelet Volume 9.2 fL Neutrophils (%) (Auto) 46.3 % Lymphocytes (%) (Auto) 40.5 % Monocytes (%) (Auto) 10.5 % Eosinophils (%) (Auto) 2.1 % Basophils (%) (Auto) 0.3 % Neutrophils # (Auto) 3.29 K/uL Lymphocytes # (Auto) 2.88 K/uL Monocytes # (Auto) 0.75 K/uL Eosinophils # (Auto) 0.15 K/uL Basophils # (Auto) 0.02 K/uL RDW Standard Deviation 48.4 fL RDW Coefficient of Variation 14.0 % Immature Granulocyte % (Auto) 0.3 % Immature Granulocyte # (Auto) 0.02 K/uL Prothrombin Time 10.4 SECONDS Prothromb Time International Ratio 1.0 Sodium Level 143 mmol/L Potassium Level 3.5 mmol/L Chloride Level 106 mmol/L Carbon Dioxide Level 31 mmol/L Anion Gap 5.0 mmol/L 12.0 mmol/L Blood Urea Nitrogen 18 mg/dl Creatinine 1.52 mg/dl Est Creatinine Clear Calc Drug Dose 31.4 ml/min Estimated GFR () 38.7 Estimated GFR (Non- 33.4 BUN/Creatinine Ratio 11.8 Random Glucose 95 mg/dl Calcium Level 9.4 mg/dl Total Bilirubin 0.3 mg/dl Direct Bilirubin < 0.1 mg/dl Aspartate Amino Transf (AST/SGOT) 28 U/L Alanine Aminotransferase (ALT/SGPT) 24 U/L Alkaline Phosphatase 124 U/L Troponin I < 0.015 ng/ml Pro-B-Type Natriuretic Peptide 200 pg/ml Total Protein 7.2 gm/dl Albumin 3.3 gm/dl Lipase 284 U/L Bedside Hemoglobin 10.5 g/dl Bedside Hematocrit 31 % Bedside Sodium 144 mEq/L Bedside Potassium 3.5 mEq/L Bedside Chloride 107 mEq/L Bedside Total CO2 30 mEq/l Bedside Blood Urea Nitrogen 20 mg/dl Bedside Creatinine 1.3 mg/dl Bedside Glucose (other) 105 mg/dl Bedside Ionized Calcium ([place]) 1.12 mmol/l Urine Color YELLOW Urine Appearance SL CLOUDY Urine pH 7.0 Urine Specific [place] 1.010 Urine Protein NEG Urine Glucose (UA) NEG Urine Ketones NEG Urine Occult Blood TRACE Urine Nitrite POS Urine Bilirubin NEG Urine Urobilinogen NEG Urine Leukocyte Esterase SMALL Urine RBC 5-10 /hpf Urine WBC 5-10 /hpf Urine Epithelial Cells >30 /lpf Urine Bacteria 4+ Urine Hyaline Casts 1-5 /lpf Bedside Glucose 249 mg/dl Test 07/19/17 01:08 07/19/17 07:36 07/19/17 08:42 07/19/17 11:06 Troponin I 0.016 ng/ml < 0.015 ng/ml White Blood Count 5.47 K/uL Red Blood Count 3.70 M/uL Hemoglobin 11.6 g/dL Hematocrit 35.5 % Mean Corpuscular Volume 95.9 fL Mean Corpuscular Hemoglobin 31.4 pg Mean Corpuscular Hemoglobin Concent 32.7 g/dl RDW Standard Deviation 51.0 fL RDW Coefficient of Variation 14.4 % Platelet Count 170 K/uL Mean Platelet Volume 9.3 fL Sodium Level 142 mmol/L Potassium Level 4.1 mmol/L Chloride Level 107 mmol/L Carbon Dioxide Level 31 mmol/L Anion Gap 4.0 mmol/L Blood Urea Nitrogen 16 mg/dl Creatinine 1.37 mg/dl Est Creatinine Clear Calc Drug Dose 34.8 ml/min Estimated GFR () 43.9 Estimated GFR (Non- 37.9 BUN/Creatinine Ratio 11.7 Random Glucose 56 mg/dl Estimated Average Glucose 146 mg/dl Hemoglobin A1c 6.7 % Calcium Level 9.0 mg/dl Magnesium Level 2.4 mg/dl Thyroid Stimulating Hormone (TSH) 3.040 uIu/ml Bedside Glucose 77 mg/dl 94 mg/dl Test 07/19/17 13:48 Troponin I < 0.015 ng/ml Assessment & Plan Assessment acute low back sprain strain. Plan at this time she is toward physical therapy him comfortable with her going home. We will see her back in the office as scheduled.
[2017-07-19] MEDS ORDERED: SODIUM CHLORIDE 0.65% NA SOLN 45 ML (OCEAN) ONE (15:40)
[2017-07-19] MEDS ORDERED: NURSING DECISION MEDICATION ORDER SCH (15:45)
[2017-07-19] MEDS ORDERED: SODIUM CHLORIDE 0.65% NA SOLN 45 ML (OCEAN) PRN (16:00)
[2017-07-19] MEDS: DOXYCYCLINE HYCLATE 100 MG CAP PO SCH (19:39)
[2017-07-19] MEDS: ROSUVASTATIN CALCIUM 20 MG TAB PO SCH (19:40)
[2017-07-19 20:05] VITALS: BP 156/69; PULSE 81; TEMP 36.9; O2SAT 96
[2017-07-19 23:31] VITALS: PULSE 68; O2SAT 96
[2017-07-20] VITALS (9 sets, daily range): BP systolic 121–173; BP diastolic 66–84; PULSE 53–91; TEMP 36.6–37; O2SAT 89–95
[2017-07-20] MEDS: HEPARIN SOD 5000 UNIT/0.5 ML CARP SQ SCH ×3 (06:09→21:53)
[2017-07-20] MEDS: INSULIN ASPART 100 UNITS/ML 3 ML PEN SC SCH ×4 (07:00→21:40)
[2017-07-20] MEDS: DOXYCYCLINE HYCLATE 100 MG CAP PO SCH ×2 (07:36→21:54)
[2017-07-20] MEDS: PREGABALIN 50 MG CAP PO SCH ×2 (07:36→21:20)
[2017-07-20] MEDS: HYDROCODONE/ACETAMIN 5/325MG TAB PO PRN ×3 (07:37→21:20)
[2017-07-20] MEDS: ASPIRIN 81 MG ECTAB PO SCH (07:37)
[2017-07-20] MEDS: BUMETANIDE 1 MG TAB PO SCH ×2 (07:38→18:02)
[2017-07-20] MEDS: ASCORBIC ACID 500 MG TAB PO SCH (07:38)
[2017-07-20] MEDS: FERROUS SULFATE 325 MG TAB PO SCH (07:39)
[2017-07-20] MEDS: SERTRALINE HCL 50 MG TAB PO SCH (07:39)
[2017-07-20] MEDS: PANTOprazole SOD 40 MG TAB PO SCH (07:39)
[2017-07-20] MEDS: CEROVITE ADV FORMULA TAB PO SCH (07:39)
[2017-07-20] MEDS: POTASSIUM CHLORIDE 20 MEQ TABCR PO SCH ×2 (07:39→21:54)
[2017-07-20] MEDS: CHOLECALCIFEROL 1000 INTER.UNIT TAB PO SCH (07:39)
[2017-07-20] MEDS ORDERED: LEVALBUTEROL/IPRATROPIUM NEB INH SCH (13:30)
[2017-07-20] MEDS ORDERED: AZTREONAM CONSULT ACTIVE PRN ×2 (14:00→14:11)
[2017-07-20] MEDS: IPRATROPIUM BROMIDE NEB SOLN 0.02% 2.5 ML VIAL INH SCH ×2 (14:27→19:29)
[2017-07-20] MEDS: LEVALBUTEROL 0.63MG/3 ML NEB INH SCH ×2 (14:29→19:28)
[2017-07-20] MEDS: AZTREONAM IV 1,000 MG in DEXTROSE 5% 100ML IV SCH ×2 (14:46→22:26)
[2017-07-20] MEDS: OXYCODONE HCL IR 5 MG TAB (IMMEDIATE RELEASE) PO PRN (19:23)
--- NOTE | 2017-07-20 19:24 | Progress Note ---
Medicine Progress Note Date & Time of Visit: Jul 20, 2017 at 19:18. Subjective patient seen resting in bed states she feels tired today, coughing more denies chest pain less back pain ambulating with no problems no other symptoms Objective Last 8 Hrs Date Time Temp Pulse Resp B/P (MAP) Pulse Ox O2 Delivery O2 Flow Rate FiO2 07/20/17 17:00 Room Air 07/20/17 16:00 36.6 86 18 173/84 (113) 92 Room Air 07/20/17 14:36 37.0 81 18 93 2.0 07/20/17 14:29 81 18 93 Room Air 07/20/17 12:00 Room Air 07/20/17 11:33 37.0 91 18 146/77 (100) 94 Room Air Physical Exam: General- oriented x 3, not in distress, speaks in sentences with no ef Head- atraumatic Eyes- anicteric Neck- no JVD Lungs- mild rhonchi at the bases, no wheeze Heart- regular rhythm; no murmur, normal rate Abdomen- normal bowel sounds, soft, nontender Extremities- mild lower leg edema, no calf tenderness; peripheral pulses intact Neuro- alert, oriented x 3; no gross focal deficits Skin- warm & dry Laboratory Results: Last 24 Hours Test 07/19/17 20:28 07/20/17 06:32 07/20/17 06:57 07/20/17 11:03 Bedside Glucose 142 mg/dl 79 mg/dl 146 mg/dl Magnesium Level 2.2 mg/dl Test 07/20/17 16:16 Bedside Glucose 132 mg/dl Assessment & Plan INTRACTABLE BACK PAIN hx of lumber spine DJD s/p decompression surgery Lumber spine Xray shows: no acute fractures, post surgical changes Spinal ortho Dr Diallo consulted , awaiting recommendations -- pain improving continue PRN analgesics Dr. Diallo's recommendations: ff up as outpatient -- PT/OT: home PT CHEST HEAVINESS, BRADYCARDIA likely VASOVAGAL ETIOLOGY , SECONDARY TO PAIN experiencing intermittent chest heaviness , worse with bradycardia Troponin negative echo: no signs of ischemia Cardiology consulted - Dr. Brooks HR now improved no further interventions at this time recommend not to resume Diltiazem in the future CHRONIC CHF WITH DIASTOLIC HEART FAILURE : appears to be compensated ECHO 01/04/15 : normal LV function EF 60 % Nc stress test -negative for stress induced ischemia cont out pt diuretics HYPOXIA POSSIBLE BILATERAL LOWER LOBE PNEUMONIA, ATELECTASIS UNDERLYING PULMONARY HYPERTENSION CT chest: The pulmonary trunk is mildly dilated measuring 3.1 cm in diameter. This suggests pulmonary artery hypertension. There are no filling defects identified in main, lobar, or segmental pulmonary branches to suggest pulmonary embolus. 1. Motion degraded examination. 2. There is no evidence of pulmonary embolus in the main, lobar, or segmental pulmonary arteries. 3. Dependent airspace opacities are present at both lung bases and likely represent atelectasis. Correlate clinically for evidence of superimposed pneumonia/aspiration pneumonitis. 4. No pleural effusion is identified. 5. Cardiomegaly. 6. Moderate hiatal hernia. 7. Additional findings as above. confirm with 2 step exercise test: no need for oxygen continue Doxycycline 100mg BID nebs Incentive Spirometry Speech Therapy Evaluation: no aspiration will need repeat imaging as outpatient check for resolution HTN : BP stable hold Cardizem due to bradycardia TYPE 2 DM : hold oral agent Glimepiride insulin SSI A1c 6.7 FULL CODE -d/w pt DVT PROPHYLAXIS : moderate risk -limited mobility due to back pain sun q heparin DISPOSITION : anticipate d/c home tomorrow ff up with PCP ff up with Ortho may need Pulmonary Eval Current Inpatient Medications: Current Inpatient Medications Medications (Trade) Dose Ordered Sig/Jose Route Start Time Stop Time Status Last Admin Dose Admin Ioversol (Optiray 320) 111 ml UD PRN IV 07/18/17 17:45 07/22/17 17:44 Aspirin (Ecotrin Tab) 81 mg QAM PO 07/19/17 09:00 08/18/17 08:59 07/20/17 07:37 81 MG Bumetanide (Bumex Tab) 2 mg BID17 PO 07/18/17 21:00 08/17/17 20:59 07/20/17 18:02 2 MG Fluticasone Propionate (Flonase Nasal [place]) 2 sprays DAILY PRN LAURIE 07/18/17 19:30 08/17/17 19:29 Acetaminophen/ Hydrocodone Bitart ([place] 5/325 Tab) 1 tab Q6H PRN PO 07/18/17 19:30 08/01/17 19:29 07/20/17 13:42 1 TAB Multivitamins/ Minerals (Multivitamin W/ Minerals Tab) 1 tab DAILY PO 07/19/17 09:00 08/18/17 08:59 07/20/17 07:39 1 TAB Nitroglycerin (Nitrostat Tab) 0.3 mg UD PRN UT 07/18/17 19:30 08/17/17 19:29 Oxycodone HCl (Roxicodone Immediate Rel Tab) 5 mg Q6H PRN PO 07/18/17 19:30 08/01/17 19:29 07/19/17 17:40 5 MG Potassium Chloride (Klor-Con Tab) 40 meq BID PO 07/18/17 21:00 08/17/17 20:59 07/20/17 07:39 40 MEQ Pregabalin (Lyrica Cap) 50 mg BID PO 07/18/17 21:00 08/17/17 20:59 07/20/17 07:36 50 MG Rosuvastatin Calcium (Crestor Tab) 20 mg QPM PO 07/18/17 21:00 08/17/17 20:59 07/19/17 19:40 20 MG Ascorbic Acid (Vitamin C Tab) 500 mg QAM PO 07/19/17 09:00 08/18/17 08:59 07/20/17 07:38 500 MG Cholecalciferol (Vitamin D Tab) 2,000 inter.unit DAILY PO 07/19/17 09:00 08/18/17 08:59 07/20/17 07:39 2,000 INTER.UNIT Pantoprazole Sodium (Protonix Tab) 40 mg QAM PO 07/19/17 09:00 08/18/17 08:59 07/20/17 07:39 40 MG Ferrous Sulfate (Feosol Tab) 325 mg DAILY PO 07/19/17 09:00 08/18/17 08:59 07/20/17 07:39 325 MG Sertraline HCl (Zoloft Tab) 25 mg DAILY PO 07/19/17 09:00 08/18/17 08:59 07/20/17 07:39 25 MG Glucose (Glucose 40% Gel) 15-30 GRAMS 15 GRAMS... UD PRN PO 07/18/17 19:30 08/17/17 19:29 Glucose (Glucose Chew Tab) 4-8 Tablets 4 Tabl... UD PRN PO 07/18/17 19:30 08/17/17 19:29 Dextrose (Dextrose 50% 50ML Syringe) 25-50ML OF 50% DW IV FOR... UD PRN IV 07/18/17 19:30 08/17/17 19:29 Glucagon (Glucagon Inj) 1 mg UD PRN SQ 07/18/17 19:30 08/17/17 19:29 Heparin Sodium (Porcine) (Heparin Sq 5000 Unit/0.5ml) 5,000 unit Q8 SQ 07/18/17 22:00 08/17/17 21:59 07/20/17 13:40 5,000 UNIT Acetaminophen (Tylenol Tab) 650 mg Q4H PRN PO 07/18/17 19:45 08/17/17 19:44 Al Hydrox/Mg Hydrox/Simethicone (Maalox Max Susp) 15 ml Q4H PRN PO 07/18/17 19:45 08/17/17 19:44 Magnesium Hydroxide (Milk Of Magnesia Susp) 30 ml Q12H PRN PO 07/18/17 19:45 08/17/17 19:44 Ondansetron HCl (Zofran Inj) 4 mg Q6H PRN IV 07/18/17 19:45 08/17/17 19:44 Polyethylene (Miralax Powder Packet) 17 gm DAILY PRN PO 07/18/17 19:45 08/17/17 19:44 Insulin Aspart (novoLOG ASPART) SLIDING SCALE If C... ACHS SC 07/19/17 07:00 08/18/17 06:59 Doxycycline Hyclate (Vibramycin Cap) 100 mg BID PO 07/19/17 16:00 07/26/17 15:59 07/20/17 07:36 100 MG Sodium Chloride ([place] Nasal [place]) 1 sprays PRN PRN NA 07/19/17 16:00 08/18/17 15:59 Aztreonam (Consult) 1 ea UD PRN N/A 07/20/17 14:11 08/19/17 14:10 Ipratropium [place] (Atrovent 0.02% 0.5MG/2.5ML Neb) 0.5 mg Q6R INH 07/20/17 15:00 08/19/17 14:59 07/20/17 14:27 0.5 MG Levalbuterol (Xopenex 0.63 Mg/ 3 Ml Neb) 0.63 mg Q6R INH 07/20/17 15:00 08/19/17 14:59 07/20/17 14:29 0.63 MG Aztreonam 1000 mg/ Dextrose 110 ml @ 110 mls/hr Q8H IV 07/20/17 15:00 07/30/17 14:59 07/20/17 14:46 110 MLS/HR
[2017-07-20] MEDS: ROSUVASTATIN CALCIUM 20 MG TAB PO SCH ×2 (21:54→22:25)
[2017-07-21] VITALS (10 sets, daily range): BP systolic 123–175; BP diastolic 71–75; PULSE 58–98; TEMP 36.3–36.6; O2SAT 91–95
[2017-07-21] MEDS: IPRATROPIUM BROMIDE NEB SOLN 0.02% 2.5 ML VIAL INH SCH ×4 (02:22→20:00)
[2017-07-21] MEDS: LEVALBUTEROL 0.63MG/3 ML NEB INH SCH ×4 (02:22→20:00)
[2017-07-21] MEDS: HEPARIN SOD 5000 UNIT/0.5 ML CARP SQ SCH ×3 (05:42→20:55)
[2017-07-21 06:03] LABS: HEMATOCRIT 35.3 % (37-47); HEMOGLOBIN 11.8 g/dL (12.0-16.0); MEAN CELL VOLUME 94.9 fL (80-100); MEAN CORPUSCULAR HEMOGLOBIN 31.7 pg (25-34); MEAN CORPUSCULAR HGB CONC 33.4 g/dl (32-36); MEAN PLATELET VOLUME 9.3 fL (7.4-10.4); PLATELET COUNT 167 K/uL (130-400); RED CELL DISTRIBUTION WIDTH CV 14.4 % (11.5-14.5); RED CELL DISTRIBUTION WIDTH SD 49.8 fL (36.4-46.3); WHITE BLOOD COUNT 5.32 K/uL (4.8-10.8)
[2017-07-21] MEDS: INSULIN ASPART 100 UNITS/ML 3 ML PEN SC SCH ×5 (06:30→21:10)
[2017-07-21] MEDS: OXYCODONE HCL IR 5 MG TAB (IMMEDIATE RELEASE) PO PRN ×2 (07:46→17:10)
[2017-07-21] MEDS: AZTREONAM IV 1,000 MG in DEXTROSE 5% 100ML IV SCH (07:47)
[2017-07-21] MEDS: PREGABALIN 50 MG CAP PO SCH ×2 (07:47→20:50)
[2017-07-21] MEDS: BUMETANIDE 1 MG TAB PO SCH ×2 (07:48→17:12)
[2017-07-21] MEDS: POTASSIUM CHLORIDE 20 MEQ TABCR PO SCH ×2 (07:49→20:50)
[2017-07-21] MEDS: DOXYCYCLINE HYCLATE 100 MG CAP PO SCH ×2 (07:50→20:50)
[2017-07-21] MEDS: ASCORBIC ACID 500 MG TAB PO SCH (08:43)
[2017-07-21] MEDS: CHOLECALCIFEROL 1000 INTER.UNIT TAB PO SCH (08:43)
[2017-07-21] MEDS: ASPIRIN 81 MG ECTAB PO SCH (08:43)
[2017-07-21] MEDS: CEROVITE ADV FORMULA TAB PO SCH (08:43)
[2017-07-21] MEDS: PANTOprazole SOD 40 MG TAB PO SCH (08:43)
[2017-07-21] MEDS: FERROUS SULFATE 325 MG TAB PO SCH (08:45)
[2017-07-21] MEDS: SERTRALINE HCL 50 MG TAB PO SCH (08:45)
[2017-07-21] MEDS: HYDROCODONE/ACETAMIN 5/325MG TAB PO PRN ×2 (10:59→19:43)
--- NOTE | 2017-07-21 17:02 | Progress Note ---
Medicine Progress Note Date & Time of Visit: Jul 21, 2017 at 17:00. Subjective seen resting in bed, comfortable states she has increased back pain today, controlled by PRN analgesics breathing and cough is improved denies other symptoms Objective Last 8 Hrs Date Time Temp Pulse Resp B/P (MAP) Pulse Ox O2 Delivery O2 Flow Rate FiO2 07/21/17 15:09 36.6 88 18 156/75 (102) 91 Room Air 07/21/17 14:15 76 16 95 Room Air 07/21/17 10:07 98 138/73 (94) Physical Exam: General- oriented x 3, not in distress, speaks in sentences with no ef Eyes- anicteric Lungs- improved rhonchi at the bases, no wheeze Heart- regular rhythm; no murmur, normal rate Abdomen- normal bowel sounds, soft, nontender Extremities- mild lower leg edema, no calf tenderness; peripheral pulses intact Neuro- alert, oriented x 3; no gross focal deficits Skin- warm & dry Laboratory Results: Last 24 Hours Test 07/20/17 20:04 07/21/17 05:20 07/21/17 07:13 07/21/17 11:18 Bedside Glucose 231 mg/dl 88 mg/dl 216 mg/dl White Blood Count 5.32 K/uL Red Blood Count 3.72 M/uL Hemoglobin 11.8 g/dL Hematocrit 35.3 % Mean Corpuscular Volume 94.9 fL Mean Corpuscular Hemoglobin 31.7 pg Mean Corpuscular Hemoglobin Concent 33.4 g/dl RDW Standard Deviation 49.8 fL RDW Coefficient of Variation 14.4 % Platelet Count 167 K/uL Mean Platelet Volume 9.3 fL Magnesium Level 2.2 mg/dl Test 07/21/17 16:33 Bedside Glucose 97 mg/dl Assessment & Plan INTRACTABLE BACK PAIN hx of lumber spine DJD s/p decompression surgery Lumber spine Xray shows: no acute fractures, post surgical changes Spinal ortho Dr Diallo consulted , awaiting recommendations -- monitor pain continue PRN analgesics Dr. Diallo's recommendations: ff up as outpatient -- PT/OT: home PT encouraged to ambulate CHEST HEAVINESS, BRADYCARDIA likely VASOVAGAL ETIOLOGY , SECONDARY TO PAIN experiencing intermittent chest heaviness , worse with bradycardia Troponin negative echo: no signs of ischemia Cardiology consulted - Dr. Brooks HR now improved no further interventions at this time recommend not to resume Diltiazem in the future CHRONIC CHF WITH DIASTOLIC HEART FAILURE : appears to be compensated ECHO 01/04/15 : normal LV function EF 60 % Nc stress test -negative for stress induced ischemia cont out pt diuretics HYPOXIA POSSIBLE BILATERAL LOWER LOBE PNEUMONIA, ATELECTASIS UNDERLYING PULMONARY HYPERTENSION CT chest: The pulmonary trunk is mildly dilated measuring 3.1 cm in diameter. This suggests pulmonary artery hypertension. There are no filling defects identified in main, lobar, or segmental pulmonary branches to suggest pulmonary embolus. 1. Motion degraded examination. 2. There is no evidence of pulmonary embolus in the main, lobar, or segmental pulmonary arteries. 3. Dependent airspace opacities are present at both lung bases and likely represent atelectasis. Correlate clinically for evidence of superimposed pneumonia/aspiration pneumonitis. 4. No pleural effusion is identified. 5. Cardiomegaly. 6. Moderate hiatal hernia. 7. Additional findings as above. 2 step exercise test: no need for oxygen continue Doxycycline 100mg BID nebs Incentive Spirometry Speech Therapy Evaluation: no aspiration will need repeat imaging as outpatient check for resolution HTN : BP stable hold Cardizem due to bradycardia TYPE 2 DM : hold oral agent Glimepiride insulin SSI A1c 6.7 FULL CODE -d/w pt DVT PROPHYLAXIS : moderate risk -limited mobility due to back pain sun q heparin DISPOSITION : anticipate d/c home tomorrow ff up with PCP ff up with Ortho may need Pulmonary Eval Current Inpatient Medications: Current Inpatient Medications Medications (Trade) Dose Ordered Sig/Jose Route Start Time Stop Time Status Last Admin Dose Admin Ioversol (Optiray 320) 111 ml UD PRN IV 07/18/17 17:45 07/22/17 17:44 Aspirin (Ecotrin Tab) 81 mg QAM PO 07/19/17 09:00 08/18/17 08:59 07/21/17 08:43 81 MG Bumetanide (Bumex Tab) 2 mg BID17 PO 07/18/17 21:00 08/17/17 20:59 07/21/17 07:48 2 MG Fluticasone Propionate (Flonase Nasal [place]) 2 sprays DAILY PRN LAURIE 07/18/17 19:30 08/17/17 19:29 Acetaminophen/ Hydrocodone Bitart ([place] 5/325 Tab) 1 tab Q6H PRN PO 07/18/17 19:30 08/01/17 19:29 07/21/17 10:59 1 TAB Multivitamins/ Minerals (Multivitamin W/ Minerals Tab) 1 tab DAILY PO 07/19/17 09:00 08/18/17 08:59 07/21/17 08:43 1 TAB Nitroglycerin (Nitrostat Tab) 0.3 mg UD PRN [place] 07/18/17 19:30 08/17/17 19:29 Oxycodone HCl (Roxicodone Immediate Rel Tab) 5 mg Q6H PRN PO 07/18/17 19:30 08/01/17 19:29 07/21/17 07:46 5 MG Potassium Chloride (Klor-Con Tab) 40 meq BID PO 07/18/17 21:00 08/17/17 20:59 07/21/17 07:49 40 MEQ Pregabalin (Lyrica Cap) 50 mg BID PO 07/18/17 21:00 08/17/17 20:59 07/21/17 07:47 50 MG Rosuvastatin Calcium (Crestor Tab) 20 mg QPM PO 07/18/17 21:00 08/17/17 20:59 07/20/17 22:25 20 MG Ascorbic Acid (Vitamin C Tab) 500 mg QAM PO 07/19/17 09:00 08/18/17 08:59 07/21/17 08:43 500 MG Cholecalciferol (Vitamin D Tab) 2,000 inter.unit DAILY PO 07/19/17 09:00 08/18/17 08:59 07/21/17 08:43 2,000 INTER.UNIT Pantoprazole Sodium (Protonix Tab) 40 mg QAM PO 07/19/17 09:00 08/18/17 08:59 07/21/17 08:43 40 MG Ferrous Sulfate (Feosol Tab) 325 mg DAILY PO 07/19/17 09:00 08/18/17 08:59 07/21/17 08:45 325 MG Sertraline HCl (Zoloft Tab) 25 mg DAILY PO 07/19/17 09:00 08/18/17 08:59 07/21/17 08:45 25 MG Glucose (Glucose 40% Gel) 15-30 GRAMS 15 GRAMS... UD PRN PO 07/18/17 19:30 08/17/17 19:29 Glucose (Glucose Chew Tab) 4-8 Tablets 4 Tabl... UD PRN PO 07/18/17 19:30 08/17/17 19:29 Dextrose (Dextrose 50% 50ML Syringe) 25-50ML OF 50% DW IV FOR... UD PRN IV 07/18/17 19:30 08/17/17 19:29 Glucagon (Glucagon Inj) 1 mg UD PRN SQ 07/18/17 19:30 08/17/17 19:29 Heparin Sodium (Porcine) (Heparin Sq 5000 Unit/0.5ml) 5,000 unit Q8 SQ 07/18/17 22:00 08/17/17 21:59 07/21/17 14:10 5,000 UNIT Acetaminophen (Tylenol Tab) 650 mg Q4H PRN PO 07/18/17 19:45 08/17/17 19:44 Al Hydrox/Mg Hydrox/Simethicone (Maalox Max Susp) 15 ml Q4H PRN PO 07/18/17 19:45 08/17/17 19:44 Magnesium Hydroxide (Milk Of Magnesia Susp) 30 ml Q12H PRN PO 07/18/17 19:45 08/17/17 19:44 Ondansetron HCl (Zofran Inj) 4 mg Q6H PRN IV 07/18/17 19:45 08/17/17 19:44 Polyethylene (Miralax Powder Packet) 17 gm DAILY PRN PO 07/18/17 19:45 08/17/17 19:44 Insulin Aspart (novoLOG ASPART) SLIDING SCALE If C... ACHS SC 07/19/17 07:00 08/18/17 06:59 07/21/17 12:26 2 UNITS Doxycycline Hyclate (Vibramycin Cap) 100 mg BID PO 07/19/17 16:00 07/26/17 15:59 07/21/17 07:50 100 MG Sodium Chloride ([place] Nasal [place]) 1 sprays PRN PRN NA 07/19/17 16:00 08/18/17 15:59 Ipratropium [place] (Atrovent 0.02% 0.5MG/2.5ML Neb) 0.5 mg Q6R INH 07/20/17 15:00 08/19/17 14:59 07/21/17 14:15 0.5 MG Levalbuterol (Xopenex 0.63 Mg/ 3 Ml Neb) 0.63 mg Q6R INH 07/20/17 15:00 08/19/17 14:59 07/21/17 14:15 0.63 MG Amoxicillin/ Clavulanate Potassium (Augmentin Tab) 500 mg BIDM PO 07/21/17 17:00 07/30/17 07:59
[2017-07-21] MEDS: AMOXICILLIN/CLAVULANATE TAB 500 MG TAB PO SCH (17:12)
[2017-07-22] MEDS: LEVALBUTEROL 0.63MG/3 ML NEB INH SCH ×3 (02:06→14:40)
[2017-07-22] MEDS: IPRATROPIUM BROMIDE NEB SOLN 0.02% 2.5 ML VIAL INH SCH ×3 (02:06→14:40)
[2017-07-22 02:07] VITALS: PULSE 66; PULSE 77; O2SAT 94; O2SAT 97
[2017-07-22] MEDS: HEPARIN SOD 5000 UNIT/0.5 ML CARP SQ SCH ×2 (05:42→13:41)
[2017-07-22] MEDS: INSULIN ASPART 100 UNITS/ML 3 ML PEN SC SCH ×2 (06:30→11:00)
[2017-07-22 07:05] VITALS: BP 123/71; PULSE 89; TEMP 36.6; O2SAT 92
[2017-07-22 07:28] VITALS: PULSE 94; O2SAT 94
[2017-07-22 08:00] VITALS: O2SAT 92
[2017-07-22] MEDS: HYDROCODONE/ACETAMIN 5/325MG TAB PO PRN ×2 (08:19→14:15)
[2017-07-22] MEDS: BUMETANIDE 1 MG TAB PO SCH (08:21)
[2017-07-22] MEDS: AMOXICILLIN/CLAVULANATE TAB 500 MG TAB PO SCH (08:21)
[2017-07-22] MEDS: FERROUS SULFATE 325 MG TAB PO SCH (08:21)
[2017-07-22] MEDS: CEROVITE ADV FORMULA TAB PO SCH (08:22)
[2017-07-22] MEDS: CHOLECALCIFEROL 1000 INTER.UNIT TAB PO SCH (08:22)
[2017-07-22] MEDS: SERTRALINE HCL 50 MG TAB PO SCH (08:22)
[2017-07-22] MEDS: PANTOprazole SOD 40 MG TAB PO SCH (08:22)
[2017-07-22] MEDS: DOXYCYCLINE HYCLATE 100 MG CAP PO SCH (08:22)
[2017-07-22] MEDS: ASPIRIN 81 MG ECTAB PO SCH (08:23)
[2017-07-22] MEDS: POTASSIUM CHLORIDE 20 MEQ TABCR PO SCH (08:23)
[2017-07-22] MEDS: ASCORBIC ACID 500 MG TAB PO SCH (08:24)
[2017-07-22] MEDS: PREGABALIN 50 MG CAP PO SCH (08:25)
[2017-07-22 13:49] VITALS: BP 123/71; PULSE 94; TEMP 36.6; O2SAT 92
[2017-07-22 14:42] VITALS: PULSE 93; O2SAT 90
--- NOTE | 2017-07-22 15:18 | Discharge Summary ---
Discharge Summary Date of Service Jul 22, 2017. Discharge Summary Admission Date: Jul 18, 2017 at 18:41 Discharge Date: Jul 22, 2017 Discharge Disposition: Home with services Principal Diagnosis: INTRACTABLE BACK PAIN , likely MUSCULAR STRAIN Secondary Diagnoses/Problems: Please refer to hospital course below. Procedures: LUMBAR SPINE 2 OR 3 VIEWS CLINICAL HISTORY: lower back pain COMPARISON STUDY: 01/21/2015 FINDINGS: Extensive postsurgical changes are again evident. There are postsurgical changes of discectomies and interbody fusions at the L4-5 and L5-S1 levels. There is a grade 1 spinal listhesis of L4 and L5. There is thoracolumbar spinal fusion extending from the T11 through the S1 level. There are bilateral sacroiliac bolts. There are multilevel degenerative changes. There is no pathologic bowel dilatation. There are surgical clips within the right upper quadrant. IMPRESSION: Extensive postsurgical changes. No acute fractures are visualized. SINGLE VIEW CHEST CLINICAL HISTORY: Atypical chest pain. FINDINGS: An AP, portable, upright chest radiograph is compared to study dated 12/17/2014 and correlated with chest CT dated 02/13/2017. The examination is degraded by portable technique and patient rotation. The heart is enlarged and there is atherosclerotic calcification of the thoracic aorta. The pulmonary vasculature is noncongested. Chronic interstitial thickening is similar to previous. No airspace consolidation or large pleural effusion is identified. There is left basilar atelectasis. No pneumothorax is seen. The skeletal structures are osteopenic. Degenerative change and scoliosis are noted in the thoracic spine. Fusion hardware is partially imaged in the upper lumbar region. Cholecystectomy clips are noted. IMPRESSION: Cardiomegaly with no acute cardiopulmonary abnormality. Electronically signed by: Vance Aburto M.D. 07/18/2017 5:[address] ANGIOGRAM OF THE CHEST CLINICAL HISTORY: Atypical chest pain. Hypoxia. COMPARISON STUDY: Chest x-ray dated 07/18/2017. Chest CT dated 02/13/2017. TECHNIQUE: Following the IV administration of 86 cc of Optiray 320, CT angiogram of the chest was performed from the upper abdomen to the thoracic inlet utilizing the pulmonary embolus protocol. Images are reviewed in the axial, sagittal, and coronal planes. 3-D MIPS images are created and assessed. IV contrast was administered without complication. A dose lowering technique was utilized adhering to the principles of ALARA. The examination is degraded by motion artifact. CT DOSE: 349.06 mGy.cm FINDINGS: Thyroid: Imaged portions of the thyroid gland are normal in size and attenuation. Thoracic aorta: There is atherosclerotic calcification of the thoracic aorta, which is normal in caliber and demonstrates standard 3-vessel arch anatomy. The thoracic aorta is not well opacified. Pulmonary vasculature: The pulmonary trunk is mildly dilated measuring 3.1 cm in diameter. This suggests pulmonary artery hypertension. There are no filling defects identified in main, lobar, or segmental pulmonary branches to suggest pulmonary embolus. Heart: The heart is enlarged and without pericardial effusion. The coronary arteries are calcified. Lungs and pleural spaces: Evaluation of the lung parenchyma is significantly degraded by respiratory motion artifact. Dependent airspace opacities are present at both lung bases. No pleural effusion is seen. Mediastinum: Prominent mediastinal lymph nodes are nonspecific. A prevascular node on image #171 measure 9 mm short axis. A precarinal node on image #155 measures 10 mm in short axis. Antionette: Clear. Axillae: There is no axillary lymphadenopathy. Upper abdomen: Cholecystectomy clips are noted. Central intrahepatic biliary ductal dilatation is likely related to previous cholecystectomy. There is a moderate hiatal hernia. Skeletal structures: The skeletal structures are osteopenic. Fusion hardware is noted at the thoracolumbar junction. Degenerative change is seen throughout the thoracic spine. No lytic or blastic bony lesions are seen. IMPRESSION: 1. Motion degraded examination. 2. There is no evidence of pulmonary embolus in the main, lobar, or segmental pulmonary arteries. 3. Dependent airspace opacities are present at both lung bases and likely represent atelectasis. Correlate clinically for evidence of superimposed pneumonia/aspiration pneumonitis. 4. No pleural effusion is identified. 5. Cardiomegaly. 6. Moderate hiatal hernia. 7. Additional findings as above. Consultations: Ortho Spine Dr. Diallo, Cardiology Dr. Brooks Pending Studies/Follow-Up: Please refer to hospital course below. Medication Reconciliation New Medications: Doxycycline Hyclate (Doxycycline Hyclate) 100 Mg Cap 100 MG PO BID for 3 Days, #6 CAP 0 Refills Changed Medications: Hydrocodone/Acetaminophen 5MG/325MG ([place] 5MG/325MG) Tab 1 TABLET PO TID PRN for Pain, #15 TAB (Changed from: Q6H) Continued Medications: Ascorbic Acid (Vitamin C) 500 Mg Cap 500 MG PO QAM Aspirin (Aspirin Ec) 81 Mg Tab 81 MG PO QAM Bumetanide (Bumex) 2 Mg Tab 2 MG PO BID Cholecalciferol (Vitamin D3) 2,000 Unit Cap 2000 INTER.UNIT PO DAILY Esomeprazole Magnesium (Esomeprazole Magnesium) 40 Mg Cap 40 MG PO QAM Ferrous Sulfate (Ferrous Sulfate) 325 Mg Tab 325 MG PO DAILY Fluticasone Propionate (Fluticasone Propionate) 120 Sprays/6000 Mcg [place] 2 SPRAYS LAURIE DAILY PRN for Allergy Symptoms Glipizide (Glipizide Xl) 5 Mg Tabcr 5 MG PO DAILY Metolazone (Metolazone) 2.5 Mg Tab 2.5 MG PO 3XWK PRN for Fluid Retention TAKE THIS MEDICATION EVERY SUNDAY,SUNDAY AND SUNDAY IF NEEDED FOR EXCESSIVE FLUID RETENTION Multiple Vitamins W/ Minerals (Centrum Adults) 1 Tab Tab 1 TAB PO DAILY Nitroglycerin (Nitrostat) 0.3 Mg Tab 0.3 MG UT UD PRN for Chest Pain, BTL PLACE ONE TABLET UNDER THE TONGUE Potassium Chloride Microencaps (Potassium Chloride Er) 20 Meq Tab 40 MEQ PO BID Pregabalin (Lyrica) 50 Mg Cap 50 MG PO BID, CAP Rosuvastatin Calcium (Rosuvastatin Calcium) 20 Mg Tab 20 MG PO QPM Sertraline HCl (Sertraline HCl) 25 Mg Tab 25 MG PO DAILY Discontinued Medications: Diltiazem Hcl Extended Release (Tiazac 360 Mg) 360 Mg Cap 360 MG PO QAM Oxycodone Immediate Rel Tab (Roxicodone Ir) 5 Mg Tab 5 MG PO Q6H PRN for Pain, #10 TAB Admission Information HPI (per Admitting provider): this is a 72 yo F with 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 pt mentions she bent forward to spilled water on the floor , felt something 'POP " on her back with excruciating pain . pain radiation to left leg unable to bear wt on left lower ext this morning -continued to have severe back pain , along with midsternal chest heaviness , discomfort , took SL nitro came to ER for evaluation , had Lumber Xray done , after return form Xray -pt became markedly bradycardic HR in low 30's associated with dizzy spell , lightheadedness and substernal chest discomfort Pacer pad was placed, HR spontaneously improved to 70's pt still having intermittent chest heaviness , no complain of SOB or Orthopnea Physical Exam (per Admitting): General Appearance: + moderate distress (due to back pain ) Head: normocephalic, atraumatic Eyes: normal inspection, PERRL, EOMI, sclerae normal ENT: normal ENT inspection Neck: thyroid normal, no JVD, no carotid bruits Respiratory/Chest: no respiratory distress, + crackles (at base) Cardiovascular: regular rate, rhythm, no JVD Abdomen/GI: normal bowel sounds, non tender, soft Extremities/Musculoskelatal: normal capillary refill, + pedal edema (1+ ) Neurologic/Psych: no motor/sensory deficits, alert, oriented x 3 Hospital Course INTRACTABLE BACK PAIN , likely MUSCULAR STRAIN hx of lumber spine DJD s/p decompression surgery Lumber spine Xray shows: no acute fractures, post surgical changes Spinal ortho Dr Diallo consulted, recommend conservative management, PT and ff up as outpatient -- given [place] PRN pain controlled recommend to continue home PT -- ff up with Dr. Diallo as outpatient in 1 week CHEST HEAVINESS, BRADYCARDIA, RESOLVED likely VASOVAGAL ETIOLOGY , SECONDARY TO PAIN experienced intermittent chest heaviness , worse with bradycardia Troponin negative echo: * Normal LV chamber size with mild concentric LVH. * Normal LV systolic function, EF 55-60%. * No segmental left ventricular wall motion abnormalities are noted. * Grade I diastolic dysfunction. * Thickened and angulated mitral valve leaflets with mild mitral regurgitation. * Mild left atrial enlargement. Cardiology consulted - Dr. Brooks -- recommend to discontinue Diltiazem HYPOXIA POSSIBLE BILATERAL LOWER LOBE PNEUMONIA, ATELECTASIS UNDERLYING PULMONARY HYPERTENSION CT chest: The pulmonary trunk is mildly dilated measuring 3.1 cm in diameter. This suggests pulmonary artery hypertension. There are no filling defects identified in main, lobar, or segmental pulmonary branches to suggest pulmonary embolus. 1. Motion degraded examination. 2. There is no evidence of pulmonary embolus in the main, lobar, or segmental pulmonary arteries. 3. Dependent airspace opacities are present at both lung bases and likely represent atelectasis. Correlate clinically for evidence of superimposed pneumonia/aspiration pneumonitis. 4. No pleural effusion is identified. 5. Cardiomegaly. 6. Moderate hiatal hernia. 7. Additional findings as above. 2 step exercise test: no need for oxygen -- given Doxycycline 100mg BID nebs Incentive Spirometry Speech Therapy Evaluation: no aspiration -- discharge plan: continue Doxycycline 100mg BID x 3 days, to complete 7 day treatment continue Incentive Spirometry will need repeat imaging- preferably CT Chest, as outpatient, to check for resolution UTI, E coli -- received Aztreonam and Augmentin x 4 days -- monitor as outpatient HTN : BP stable hold Cardizem due to bradycardia -- monitor TYPE 2 DM : A1c 6.7 continue Glimepiride CHRONIC CHF WITH DIASTOLIC HEART FAILURE appears to be compensated cont out pt diuretics DISPOSITION : d/c home with home health ff up with PCP in 3-5 days ff up with Ortho Spine Dr. Diallo in 1 week consider Pulmonary Eval Total time spent on discharge = 40 minutes This includes examination of the patient, discharge planning, medication reconciliation, and communication with other providers. Discharge Instructions Discharge Instructions Date of Service Jul 22, 2017. Admission Reason for Admission: Bradycardia; Chest Pain Discharge Discharge Diagnosis / Problem: BACK PAIN, PNEUMONIA Discharge Goals Goal(s): Diagnostic testing, Therapeutic intervention Activity Recommendations Activity Limitations: as noted below (INCREASE ACTIVITY GRADUALLY TOLERATED , NO HEAVY EXERTION) Lifting Limitations: until after follow-up appointment Exercise/Sports Limitations: until after follow-up appointment . Instructions / Follow-Up Instructions / Follow-Up PLEASE REFER TO YOUR NEW MEDICATION LIST AND FOLLOW INSTRUCTIONS CAREFULLY. CONTINUE PHYSICAL THERAPY AT HOME C/O HOME HEALTH SERVICES. PLEASE CALL YOUR PRIMARY CARE PHYSICIAN OR RETURN TO ER IMMEDIATELY IF WITH RECURRENCE OF SYMPTOMS, CHEST PAIN, SHORTNESS OF BREATH, FEVER/CHILLS, INCREASING COUGH/PHLEGM PRODUCTION, WEAKNESS. FOLLOW UP WITH YOUR PRIMARY CARE PHYSICIAN IN 3-[address] FOLLOW UP WITH DR. DIALLO IN 1 WEEK. Current Hospital Diet Patient's current hospital diet: Diabetes Type 2 Diet, AHA Diet (Heart Healthy) Discharge Diet Recommended Diet: AHA Diet (Heart Healthy), Diabetes Type 2 Diet Procedures Procedures Performed: XRAY OF THE LUMBAR SPINE, CT SCAN OF THE CHEST, ECHOCARDIOGRAM Pending Studies Studies pending at discharge: yes List of pending studies: REPEAT IMAGING OF THE CHEST Laboratory Results Hemoglobin A1c Test 07/19/17 07:36 Range/Units Estimated Average Glucose 146 mg/dl Hemoglobin A1c 6.7 H 4.5-5.6 % Medical Emergencies . Who to Call and When: Medical Emergencies: If at any time you feel your situation is an emergency, please call 911 immediately. . Non-Emergent Contact Non-Emergency issues call your: Primary Care Provider, Surgeon (DR. DIALLO) Call Non-Emergent contact if: you have a fever, your pain is not controlled, your pain is worsening, you have any medication questions . . "Provider Documentation" section prepared by Edgar Deng. . VTE Core Measure Inpt VTE Proph given/why not?: Unfractionated heparin SQ
--- NOTE | 2017-07-22 15:45 | Progress Note ---
Medicine Progress Note Date & Time of Visit: Jul 22, 2017 at 15:43. Subjective seen sitting up in bed, daughter at bedside I apologized deeply to the patient and her daughter for the long wait for discharge. I relayed that it was an unusually busy day and that I am so sorry that they had to wait. patient states she feels fine except for back pain, improving but still present able to ambulate as before [place] alleviating the pain denies cough, shortness of breath, chest pain denies other symptoms states she is ready and would like to be discharged Objective Last 8 Hrs Date Time Temp Pulse Resp B/P (MAP) Pulse Ox O2 Delivery O2 Flow Rate FiO2 07/22/17 14:42 93 16 90 Room Air 07/22/17 13:49 36.6 94 16 92 Room Air 07/22/17 08:00 92 Room Air Physical Exam: General- oriented x 3, not in distress, speaks in sentences with no ef Eyes- anicteric Lungs- clear breath sounds bilaterally, no rales/wheezes Heart- normal rate, regular rhythm; no murmurs Abdomen- normal bowel sounds, soft, nontender Extremities- trace leg edema, no calf tenderness Neuro- alert, oriented x 3; no gross focal deficits Skin- warm & dry Laboratory Results: Last 24 Hours Test 07/21/17 16:33 07/21/17 19:44 07/22/17 05:22 07/22/17 07:13 Bedside Glucose 97 mg/dl 172 mg/dl 99 mg/dl Magnesium Level 2.3 mg/dl Test 07/22/17 11:30 Bedside Glucose 108 mg/dl Assessment & Plan INTRACTABLE BACK PAIN , likely MUSCULAR STRAIN hx of lumber spine DJD s/p decompression surgery Lumber spine Xray shows: no acute fractures, post surgical changes Spinal ortho Dr Diallo consulted, recommend conservative management, PT and ff up as outpatient -- given [place] PRN pain controlled recommend to continue home PT -- ff up with Dr. Diallo as outpatient in 1 week CHEST HEAVINESS, BRADYCARDIA, RESOLVED likely VASOVAGAL ETIOLOGY , SECONDARY TO PAIN experienced intermittent chest heaviness , worse with bradycardia Troponin negative echo: * Normal LV chamber size with mild concentric LVH. * Normal LV systolic function, EF 55-60%. * No segmental left ventricular wall motion abnormalities are noted. * Grade I diastolic dysfunction. * Thickened and angulated mitral valve leaflets with mild mitral regurgitation. * Mild left atrial enlargement. Cardiology consulted - Dr. Brooks -- recommend to discontinue Diltiazem HYPOXIA POSSIBLE BILATERAL LOWER LOBE PNEUMONIA, ATELECTASIS UNDERLYING PULMONARY HYPERTENSION CT chest: The pulmonary trunk is mildly dilated measuring 3.1 cm in diameter. This suggests pulmonary artery hypertension. There are no filling defects identified in main, lobar, or segmental pulmonary branches to suggest pulmonary embolus. 1. Motion degraded examination. 2. There is no evidence of pulmonary embolus in the main, lobar, or segmental pulmonary arteries. 3. Dependent airspace opacities are present at both lung bases and likely represent atelectasis. Correlate clinically for evidence of superimposed pneumonia/aspiration pneumonitis. 4. No pleural effusion is identified. 5. Cardiomegaly. 6. Moderate hiatal hernia. 7. Additional findings as above. 2 step exercise test: no need for oxygen -- given Doxycycline 100mg BID nebs Incentive Spirometry Speech Therapy Evaluation: no aspiration -- discharge plan: continue Doxycycline 100mg BID x 3 days, to complete 7 day treatment continue Incentive Spirometry will need repeat imaging- preferably CT Chest, as outpatient, to check for resolution UTI, E coli -- received Aztreonam and Augmentin x 4 days -- monitor as outpatient HTN : BP stable hold Cardizem due to bradycardia -- monitor TYPE 2 DM : A1c 6.7 continue Glimepiride CHRONIC CHF WITH DIASTOLIC HEART FAILURE appears to be compensated cont out pt diuretics DISPOSITION : d/c home with home health ff up with PCP in 3-5 days ff up with Ortho Spine Dr. Diallo in 1 week consider Pulmonary Eval Current Inpatient Medications: Current Inpatient Medications Medications (Trade) Dose Ordered Sig/Jose Route Start Time Stop Time Status Last Admin Dose Admin Ioversol (Optiray 320) 111 ml UD PRN IV 07/18/17 17:45 07/22/17 17:44 Aspirin (Ecotrin Tab) 81 mg QAM PO 07/19/17 09:00 08/18/17 08:59 07/22/17 08:23 81 MG Bumetanide (Bumex Tab) 2 mg BID17 PO 07/18/17 21:00 08/17/17 20:59 07/22/17 08:21 2 MG Fluticasone Propionate (Flonase Nasal [place]) 2 sprays DAILY PRN LAURIE 07/18/17 19:30 08/17/17 19:29 Acetaminophen/ Hydrocodone Bitart ([place] 5/325 Tab) 1 tab Q6H PRN PO 07/18/17 19:30 08/01/17 19:29 07/22/17 14:15 1 TAB Multivitamins/ Minerals (Multivitamin W/ Minerals Tab) 1 tab DAILY PO 07/19/17 09:00 08/18/17 08:59 07/22/17 08:22 1 TAB Nitroglycerin (Nitrostat Tab) 0.3 mg UD PRN [place] 07/18/17 19:30 08/17/17 19:29 Oxycodone HCl (Roxicodone Immediate Rel Tab) 5 mg Q6H PRN PO 07/18/17 19:30 08/01/17 19:29 07/21/17 17:10 5 MG Potassium Chloride (Klor-Con Tab) 40 meq BID PO 07/18/17 21:00 08/17/17 20:59 07/22/17 08:23 40 MEQ Pregabalin (Lyrica Cap) 50 mg BID PO 07/18/17 21:00 08/17/17 20:59 07/22/17 08:25 50 MG Rosuvastatin Calcium (Crestor Tab) 20 mg QPM PO 07/18/17 21:00 08/17/17 20:59 07/20/17 22:25 20 MG Ascorbic Acid (Vitamin C Tab) 500 mg QAM PO 07/19/17 09:00 08/18/17 08:59 07/22/17 08:24 500 MG Cholecalciferol (Vitamin D Tab) 2,000 inter.unit DAILY PO 07/19/17 09:00 08/18/17 08:59 07/22/17 08:22 2,000 INTER.UNIT Pantoprazole Sodium (Protonix Tab) 40 mg QAM PO 07/19/17 09:00 08/18/17 08:59 07/22/17 08:22 40 MG Ferrous Sulfate (Feosol Tab) 325 mg DAILY PO 07/19/17 09:00 08/18/17 08:59 07/22/17 08:21 325 MG Sertraline HCl (Zoloft Tab) 25 mg DAILY PO 07/19/17 09:00 08/18/17 08:59 07/22/17 08:22 25 MG Glucose (Glucose 40% Gel) 15-30 GRAMS 15 GRAMS... UD PRN PO 07/18/17 19:30 08/17/17 19:29 Glucose (Glucose Chew Tab) 4-8 Tablets 4 Tabl... UD PRN PO 07/18/17 19:30 08/17/17 19:29 Dextrose (Dextrose 50% 50ML Syringe) 25-50ML OF 50% DW IV FOR... UD PRN IV 07/18/17 19:30 08/17/17 19:29 Glucagon (Glucagon Inj) 1 mg UD PRN SQ 07/18/17 19:30 08/17/17 19:29 Heparin Sodium (Porcine) (Heparin Sq 5000 Unit/0.5ml) 5,000 unit Q8 SQ 07/18/17 22:00 08/17/17 21:59 07/22/17 05:42 5,000 UNIT Acetaminophen (Tylenol Tab) 650 mg Q4H PRN PO 07/18/17 19:45 08/17/17 19:44 Al Hydrox/Mg Hydrox/Simethicone (Maalox Max Susp) 15 ml Q4H PRN PO 07/18/17 19:45 08/17/17 19:44 Magnesium Hydroxide (Milk Of Magnesia Susp) 30 ml Q12H PRN PO 07/18/17 19:45 08/17/17 19:44 Ondansetron HCl (Zofran Inj) 4 mg Q6H PRN IV 07/18/17 19:45 08/17/17 19:44 Polyethylene (Miralax Powder Packet) 17 gm DAILY PRN PO 07/18/17 19:45 08/17/17 19:44 Insulin Aspart (novoLOG ASPART) SLIDING SCALE If C... ACHS SC 07/19/17 07:00 08/18/17 06:59 07/21/17 21:10 1 UNITS Doxycycline Hyclate (Vibramycin Cap) 100 mg BID PO 07/19/17 16:00 07/26/17 15:59 07/22/17 08:22 100 MG Sodium Chloride ([place] Nasal [place]) 1 sprays PRN PRN NA 07/19/17 16:00 08/18/17 15:59 Ipratropium [place] (Atrovent 0.02% 0.5MG/2.5ML Neb) 0.5 mg Q6R INH 07/20/17 15:00 08/19/17 14:59 07/22/17 14:40 0.5 MG Levalbuterol (Xopenex 0.63 Mg/ 3 Ml Neb) 0.63 mg Q6R INH 07/20/17 15:00 08/19/17 14:59 07/22/17 14:40 0.63 MG Amoxicillin/ Clavulanate Potassium (Augmentin Tab) 500 mg BIDM PO 07/21/17 17:00 07/30/17 07:59 07/22/17 08:21 500 MG
[2017-07-22] MEDS ORDERED: DXY100 PO (15:53)
[2017-07-22] MEDS ORDERED: HYDR-5688 PO (15:53)
--- NOTE | 2017-07-22 15:57 | Discharge Instructions ---
Discharge Instructions Date of Service Jul 22, 2017. Admission Reason for Admission: Bradycardia; Chest Pain Discharge Discharge Diagnosis / Problem: BACK PAIN, PNEUMONIA Discharge Goals Goal(s): Diagnostic testing, Therapeutic intervention Activity Recommendations Activity Limitations: as noted below (INCREASE ACTIVITY GRADUALLY TOLERATED , NO HEAVY EXERTION) Lifting Limitations: until after follow-up appointment Exercise/Sports Limitations: until after follow-up appointment . Instructions / Follow-Up Instructions / Follow-Up PLEASE REFER TO YOUR NEW MEDICATION LIST AND FOLLOW INSTRUCTIONS CAREFULLY. CONTINUE PHYSICAL THERAPY AT HOME C/O HOME HEALTH SERVICES. PLEASE CALL YOUR PRIMARY CARE PHYSICIAN OR RETURN TO ER IMMEDIATELY IF WITH RECURRENCE OF SYMPTOMS, CHEST PAIN, SHORTNESS OF BREATH, FEVER/CHILLS, INCREASING COUGH/PHLEGM PRODUCTION, WEAKNESS. FOLLOW UP WITH YOUR PRIMARY CARE PHYSICIAN IN 3-[address] FOLLOW UP WITH DR. ELIZONDO IN 1 WEEK. Current Hospital Diet Patient's current hospital diet: Diabetes Type 2 Diet, AHA Diet (Heart Healthy) Discharge Diet Recommended Diet: AHA Diet (Heart Healthy), Diabetes Type 2 Diet Procedures Procedures Performed: XRAY OF THE LUMBAR SPINE, CT SCAN OF THE CHEST, ECHOCARDIOGRAM Pending Studies Studies pending at discharge: yes List of pending studies: REPEAT IMAGING OF THE CHEST Laboratory Results Hemoglobin A1c Test 07/19/17 07:36 Range/Units Estimated Average Glucose 146 mg/dl Hemoglobin A1c 6.7 H 4.5-5.6 % Medical Emergencies . Who to Call and When: Medical Emergencies: If at any time you feel your situation is an emergency, please call 911 immediately. . Non-Emergent Contact Non-Emergency issues call your: Primary Care Provider, Surgeon (DR. ELIZONDO) Call Non-Emergent contact if: you have a fever, your pain is not controlled, your pain is worsening, you have any medication questions . . "Provider Documentation" section prepared by Edgar Deng. . VTE Core Measure Inpt VTE Proph given/why not?: Unfractionated heparin SQ
== END 2017-07-22 18:04 | disposition home health service (06) | DRG 309 ==
LOC: C.EDB 13:18 → C.2T 18:41 → ENRESERV 20:06 → C.MS2W 07-20 14:42
PROVIDERS: ADMIT Hospitalist; ATTEND Internal Medicine
DX: R00.1 Bradycardia, unspecified (principal); I50.32 Chronic diastolic (congestive) heart failure; N39.0 Urinary tract infection, site not specified; A49.8 Other bacterial infections of unspecified site; M54.9 Dorsalgia, unspecified; E11.9 Type 2 diabetes mellitus without complications; G89.29 Other chronic pain; F32.9 Major depressive disorder, single episode, unspecified; K21.9 Gastro-esophageal reflux disease without esophagitis; I11.0 Hypertensive heart disease with heart failure; Z96.653 Presence of artificial knee joint, bilateral; Z88.1 Allergy status to other antibiotic agents; Z79.82 Long term (current) use of aspirin

== ENCOUNTER → 2017-08-20 | Outpatient (CLI) | payer BC ==
[~2017-08-20] MED LIST changes: -ASPI-461 PO; +ASPI81TA28 PO; -ATV1 PO; +BUME2TAB3 PO; +CHOL2000 PO; -DILT-119 PO; -DVN80125 PO; +DXY100 PO; +ESOM1CAP34 PO; +FERR1TAB62 PO; +FLNIN/ NAE; -FURO40TA3 PO; +GLCSR5 PO; -HYDR-4852 PO; +HYDR-5688 PO; -IRON PO; -MEDR2.5T PO; +MULT-610 PO; -MULT-884 PO; -NITROGLYCERIN SL; +NTRSL3 UT; -NXM/40 PO; -POTA10CA28 PO; +POTA20TA13 PO; -PRM625 PO; -ROSU20TA PO; +ROSU20TA33 PO; -RXC5 PO; +SERT1TAB88 PO; -SITA1TAB21 PO; +ZRX25 PO
[2017-08-20 11:02] LABS: ALBUMIN 3.8 gm/dl (3.4-5.0); BLOOD UREA NITROGEN 20 mg/dl (7-18); CALCIUM 10.1 mg/dl (8.5-10.1); CARBON DIOXIDE 28 mmol/L (21-32); CREATININE 1.41 mg/dl (0.60-1.20); GLUCOSE 92 mg/dl (70-99); PHOSPHORUS 3.1 mg/dl (2.5-4.9); POTASSIUM 4.6 mmol/L (3.5-5.1); SODIUM 142 mmol/L (136-145)
--- NOTE | 2017-08-20 11:18 | DIAGNOSTIC IMAGING REPORT ---
(CHEST) THORAX WITHOUT CT DOSE: 288.63 mGy.cm HISTORY: Pneumonia PNEUMONIA TECHNIQUE: Multiaxial CT images of the chest were performed without contrast. A dose lowering technique was utilized adhering to the principles of ALARA. COMPARISON: 07/18/2017 FINDINGS: The lungs are now considered clear. The basilar infiltrates procedure described have resolved. There is no significant residual. Fixed lateral hernia is again noted. Evidence for prior cholecystectomy. Postoperative changes of the low thoracic region are unchanged. IMPRESSION: 1. Lungs are now considered clear. 2. Infiltrative changes produces described in the lung bases have resolved. 3. Unchanging hiatal hernia. The above report was generated using voice recognition software. It may contain grammatical, syntax or spelling errors. Electronically signed by: Jan Cary M.D. 08/20/2017 11:17 AM Dictated Date/Time: 08/20/2017 11:14 AM
== END | disposition home or self-care (01) ==
LOC: C.CTS 10:08
PROVIDERS: ATTEND Physician Assistant Medical
DX: N18.3 Chronic kidney disease, stage 3 (moderate) (principal); J16.8 Pneumonia due to other specified infectious organisms; D48.7 Neoplasm of uncertain behavior of other specified sites